=== PATIENT | male | born 1970 | race Caucasian/White ===

== ENCOUNTER 2024-02-16 08:34 | Outpatient (REF) | payer OTHER, SELFPAY ==
--- NOTE | ~2024-02-16 | XR_ITS ---
EXAMINATION: XR BILATERAL FEET XR CERVICAL SPINE XR BILATERAL HANDS XR SACROILIAC JOINTS XR THORACIC SPINE XR LUMBAR SPINE CLINICAL INFORMATION: Arthropathic psoriasis. COMPARISON: None available. TECHNIQUE: 7 views of the cervical spine, 3 views of the thoracic spine, 6 views of the lumbar spine. 4 views of each hand, 3 views of each foot. 3 views of the bilateral sacroiliac joints. FINDINGS: Bilateral Sacroiliac Joints: Moderate degenerative changes in the bilateral sacroiliac joints. Limited views of the bilateral hips demonstrate advanced degenerative changes with joint space narrowing and large superolateral acetabular osteophytes compatible with given history of psoriatic arthritis. Cervical Spine: Limited visualization of C5, and poor visualization of C6 and C7 due to overlying soft tissues. Multilevel cervical spondylosis with advanced degenerative changes and loss of disc space height at C4-C5 and C5-C6. Loss of disc space height at C6-C7 is difficult to confirm due to poor visualization. Bilateral multilevel facet hypertrophy with neural foraminal encroachment. Thoracic Spine: Slight rightward curvature of the thoracic spine with hypertrophic spurring along the anterior aspects of the xct-vx-gfuph thoracic spine. Lumbar Spine: Mild rightward curvature of the lumbar spine. Advanced facet arthritis in the hbe-mq-nxxct lumbar spine characteristic of psoriatic arthritis. Moderate multilevel lumbar spondylosis with multilevel loss of disc space height, particularly notable at L4-L5 and L5-S1. Right Hand: Moderate degenerative changes in the first carpometacarpal joint with joint space narrowing and hypertrophic change. Advanced degenerative changes with hypertrophic change in the first and second metacarpophalangeal joints. Hypertrophic change along the volar aspect of the bilateral second and third proximal phalanges. Left Hand: Moderate degenerative changes in the first carpometacarpal joint with joint space narrowing and hypertrophic change. Left ulnar-minus variance. Corticated ossicle distal to the left ulnar styloid, possibly related to prior avulsion. Small erosion at the volar base of the left fifth distal phalanx. Advanced degenerative changes and hypertrophic change in the first and second metacarpophalangeal joints. Hypertrophic change along the volar aspect of the bilateral second and third proximal phalanges. Right Foot: Tiny plantar calcaneal spur. Hypertrophic change along the dorsal aspect of the calcaneus. Tvqn-rv-ondbrzfe degenerative changes with hypertrophic change in the first metatarsophalangeal joints. Left Foot: Moderate degenerative changes in the first metatarsophalangeal joint with hypertrophic change and possible ulceration along the lateral aspect of the base of the first proximal phalanx. Small posterior calcaneal spur. Small corticated ossicle along the dorsal aspect of the navicular. Degenerative changes with hypertrophic change at the tarsometatarsal joints. XR/XR cervical spine 4V IMPRESSION: 1. Moderate degenerative changes in the bilateral sacroiliac joints. 2. Advanced degenerative changes in the bilateral hips compatible with given history of psoriatic arthritis. 3. Multilevel cervical spondylosis with advanced degenerative changes and loss of disc space height at C4-C5 and at C5-C6. Possible degenerative changes at C6-C7, are difficult to confirm due to poor visualization. 4. Moderate multilevel lumbar spondylosis with multilevel loss of disc space height particularly notable at L4-L5 and L5-S1. 5. Moderate degenerative changes in the bilateral hands most notable in the first and second metacarpophalangeal joints. 6. Moderate degenerative changes in the bilateral first metatarsophalangeal joints. 7. Advanced facet arthritis in the mid to lower lumbar spine characteristic of psoriatic arthritis.
--- NOTE | ~2024-02-16 | XR_ITS ---
EXAMINATION: XR BILATERAL FEET XR CERVICAL SPINE XR BILATERAL HANDS XR SACROILIAC JOINTS XR THORACIC SPINE XR LUMBAR SPINE CLINICAL INFORMATION: Arthropathic psoriasis. COMPARISON: None available. TECHNIQUE: 7 views of the cervical spine, 3 views of the thoracic spine, 6 views of the lumbar spine. 4 views of each hand, 3 views of each foot. 3 views of the bilateral sacroiliac joints. FINDINGS: Bilateral Sacroiliac Joints: Moderate degenerative changes in the bilateral sacroiliac joints. Limited views of the bilateral hips demonstrate advanced degenerative changes with joint space narrowing and large superolateral acetabular osteophytes compatible with given history of psoriatic arthritis. Cervical Spine: Limited visualization of C5, and poor visualization of C6 and C7 due to overlying soft tissues. Multilevel cervical spondylosis with advanced degenerative changes and loss of disc space height at C4-C5 and C5-C6. Loss of disc space height at C6-C7 is difficult to confirm due to poor visualization. Bilateral multilevel facet hypertrophy with neural foraminal encroachment. Thoracic Spine: Slight rightward curvature of the thoracic spine with hypertrophic spurring along the anterior aspects of the jgq-as-rkqbf thoracic spine. Lumbar Spine: Mild rightward curvature of the lumbar spine. Advanced facet arthritis in the gec-tu-xmbjk lumbar spine characteristic of psoriatic arthritis. Moderate multilevel lumbar spondylosis with multilevel loss of disc space height, particularly notable at L4-L5 and L5-S1. Right Hand: Moderate degenerative changes in the first carpometacarpal joint with joint space narrowing and hypertrophic change. Advanced degenerative changes with hypertrophic change in the first and second metacarpophalangeal joints. Hypertrophic change along the volar aspect of the bilateral second and third proximal phalanges. Left Hand: Moderate degenerative changes in the first carpometacarpal joint with joint space narrowing and hypertrophic change. Left ulnar-minus variance. Corticated ossicle distal to the left ulnar styloid, possibly related to prior avulsion. Small erosion at the volar base of the left fifth distal phalanx. Advanced degenerative changes and hypertrophic change in the first and second metacarpophalangeal joints. Hypertrophic change along the volar aspect of the bilateral second and third proximal phalanges. Right Foot: Tiny plantar calcaneal spur. Hypertrophic change along the dorsal aspect of the calcaneus. Vtji-fi-olvzkbnd degenerative changes with hypertrophic change in the first metatarsophalangeal joints. Left Foot: Moderate degenerative changes in the first metatarsophalangeal joint with hypertrophic change and possible ulceration along the lateral aspect of the base of the first proximal phalanx. Small posterior calcaneal spur. Small corticated ossicle along the dorsal aspect of the navicular. Degenerative changes with hypertrophic change at the tarsometatarsal joints. XR/XR hand wrist RT IMPRESSION: 1. Moderate degenerative changes in the bilateral sacroiliac joints. 2. Advanced degenerative changes in the bilateral hips compatible with given history of psoriatic arthritis. 3. Multilevel cervical spondylosis with advanced degenerative changes and loss of disc space height at C4-C5 and at C5-C6. Possible degenerative changes at C6-C7, are difficult to confirm due to poor visualization. 4. Moderate multilevel lumbar spondylosis with multilevel loss of disc space height particularly notable at L4-L5 and L5-S1. 5. Moderate degenerative changes in the bilateral hands most notable in the first and second metacarpophalangeal joints. 6. Moderate degenerative changes in the bilateral first metatarsophalangeal joints. 7. Advanced facet arthritis in the mid to lower lumbar spine characteristic of psoriatic arthritis.
--- NOTE | ~2024-02-16 | XR_ITS ---
EXAMINATION: XR BILATERAL FEET XR CERVICAL SPINE XR BILATERAL HANDS XR SACROILIAC JOINTS XR THORACIC SPINE XR LUMBAR SPINE CLINICAL INFORMATION: Arthropathic psoriasis. COMPARISON: None available. TECHNIQUE: 7 views of the cervical spine, 3 views of the thoracic spine, 6 views of the lumbar spine. 4 views of each hand, 3 views of each foot. 3 views of the bilateral sacroiliac joints. FINDINGS: Bilateral Sacroiliac Joints: Moderate degenerative changes in the bilateral sacroiliac joints. Limited views of the bilateral hips demonstrate advanced degenerative changes with joint space narrowing and large superolateral acetabular osteophytes compatible with given history of psoriatic arthritis. Cervical Spine: Limited visualization of C5, and poor visualization of C6 and C7 due to overlying soft tissues. Multilevel cervical spondylosis with advanced degenerative changes and loss of disc space height at C4-C5 and C5-C6. Loss of disc space height at C6-C7 is difficult to confirm due to poor visualization. Bilateral multilevel facet hypertrophy with neural foraminal encroachment. Thoracic Spine: Slight rightward curvature of the thoracic spine with hypertrophic spurring along the anterior aspects of the gyo-ar-dbsdw thoracic spine. Lumbar Spine: Mild rightward curvature of the lumbar spine. Advanced facet arthritis in the zjp-fp-dmbpj lumbar spine characteristic of psoriatic arthritis. Moderate multilevel lumbar spondylosis with multilevel loss of disc space height, particularly notable at L4-L5 and L5-S1. Right Hand: Moderate degenerative changes in the first carpometacarpal joint with joint space narrowing and hypertrophic change. Advanced degenerative changes with hypertrophic change in the first and second metacarpophalangeal joints. Hypertrophic change along the volar aspect of the bilateral second and third proximal phalanges. Left Hand: Moderate degenerative changes in the first carpometacarpal joint with joint space narrowing and hypertrophic change. Left ulnar-minus variance. Corticated ossicle distal to the left ulnar styloid, possibly related to prior avulsion. Small erosion at the volar base of the left fifth distal phalanx. Advanced degenerative changes and hypertrophic change in the first and second metacarpophalangeal joints. Hypertrophic change along the volar aspect of the bilateral second and third proximal phalanges. Right Foot: Tiny plantar calcaneal spur. Hypertrophic change along the dorsal aspect of the calcaneus. Wbcz-ve-iquzxjor degenerative changes with hypertrophic change in the first metatarsophalangeal joints. Left Foot: Moderate degenerative changes in the first metatarsophalangeal joint with hypertrophic change and possible ulceration along the lateral aspect of the base of the first proximal phalanx. Small posterior calcaneal spur. Small corticated ossicle along the dorsal aspect of the navicular. Degenerative changes with hypertrophic change at the tarsometatarsal joints. XR/XR foot RT min 3V IMPRESSION: 1. Moderate degenerative changes in the bilateral sacroiliac joints. 2. Advanced degenerative changes in the bilateral hips compatible with given history of psoriatic arthritis. 3. Multilevel cervical spondylosis with advanced degenerative changes and loss of disc space height at C4-C5 and at C5-C6. Possible degenerative changes at C6-C7, are difficult to confirm due to poor visualization. 4. Moderate multilevel lumbar spondylosis with multilevel loss of disc space height particularly notable at L4-L5 and L5-S1. 5. Moderate degenerative changes in the bilateral hands most notable in the first and second metacarpophalangeal joints. 6. Moderate degenerative changes in the bilateral first metatarsophalangeal joints. 7. Advanced facet arthritis in the mid to lower lumbar spine characteristic of psoriatic arthritis.
--- NOTE | ~2024-02-16 | XR_ITS ---
EXAMINATION: XR BILATERAL FEET XR CERVICAL SPINE XR BILATERAL HANDS XR SACROILIAC JOINTS XR THORACIC SPINE XR LUMBAR SPINE CLINICAL INFORMATION: Arthropathic psoriasis. COMPARISON: None available. TECHNIQUE: 7 views of the cervical spine, 3 views of the thoracic spine, 6 views of the lumbar spine. 4 views of each hand, 3 views of each foot. 3 views of the bilateral sacroiliac joints. FINDINGS: Bilateral Sacroiliac Joints: Moderate degenerative changes in the bilateral sacroiliac joints. Limited views of the bilateral hips demonstrate advanced degenerative changes with joint space narrowing and large superolateral acetabular osteophytes compatible with given history of psoriatic arthritis. Cervical Spine: Limited visualization of C5, and poor visualization of C6 and C7 due to overlying soft tissues. Multilevel cervical spondylosis with advanced degenerative changes and loss of disc space height at C4-C5 and C5-C6. Loss of disc space height at C6-C7 is difficult to confirm due to poor visualization. Bilateral multilevel facet hypertrophy with neural foraminal encroachment. Thoracic Spine: Slight rightward curvature of the thoracic spine with hypertrophic spurring along the anterior aspects of the bbb-mp-ehlmy thoracic spine. Lumbar Spine: Mild rightward curvature of the lumbar spine. Advanced facet arthritis in the def-kj-ehplo lumbar spine characteristic of psoriatic arthritis. Moderate multilevel lumbar spondylosis with multilevel loss of disc space height, particularly notable at L4-L5 and L5-S1. Right Hand: Moderate degenerative changes in the first carpometacarpal joint with joint space narrowing and hypertrophic change. Advanced degenerative changes with hypertrophic change in the first and second metacarpophalangeal joints. Hypertrophic change along the volar aspect of the bilateral second and third proximal phalanges. Left Hand: Moderate degenerative changes in the first carpometacarpal joint with joint space narrowing and hypertrophic change. Left ulnar-minus variance. Corticated ossicle distal to the left ulnar styloid, possibly related to prior avulsion. Small erosion at the volar base of the left fifth distal phalanx. Advanced degenerative changes and hypertrophic change in the first and second metacarpophalangeal joints. Hypertrophic change along the volar aspect of the bilateral second and third proximal phalanges. Right Foot: Tiny plantar calcaneal spur. Hypertrophic change along the dorsal aspect of the calcaneus. Livu-bs-jeumjmbs degenerative changes with hypertrophic change in the first metatarsophalangeal joints. Left Foot: Moderate degenerative changes in the first metatarsophalangeal joint with hypertrophic change and possible ulceration along the lateral aspect of the base of the first proximal phalanx. Small posterior calcaneal spur. Small corticated ossicle along the dorsal aspect of the navicular. Degenerative changes with hypertrophic change at the tarsometatarsal joints. XR/XR foot LT min 3V IMPRESSION: 1. Moderate degenerative changes in the bilateral sacroiliac joints. 2. Advanced degenerative changes in the bilateral hips compatible with given history of psoriatic arthritis. 3. Multilevel cervical spondylosis with advanced degenerative changes and loss of disc space height at C4-C5 and at C5-C6. Possible degenerative changes at C6-C7, are difficult to confirm due to poor visualization. 4. Moderate multilevel lumbar spondylosis with multilevel loss of disc space height particularly notable at L4-L5 and L5-S1. 5. Moderate degenerative changes in the bilateral hands most notable in the first and second metacarpophalangeal joints. 6. Moderate degenerative changes in the bilateral first metatarsophalangeal joints. 7. Advanced facet arthritis in the mid to lower lumbar spine characteristic of psoriatic arthritis.
--- NOTE | ~2024-02-16 | XR_ITS ---
EXAMINATION: XR BILATERAL FEET XR CERVICAL SPINE XR BILATERAL HANDS XR SACROILIAC JOINTS XR THORACIC SPINE XR LUMBAR SPINE CLINICAL INFORMATION: Arthropathic psoriasis. COMPARISON: None available. TECHNIQUE: 7 views of the cervical spine, 3 views of the thoracic spine, 6 views of the lumbar spine. 4 views of each hand, 3 views of each foot. 3 views of the bilateral sacroiliac joints. FINDINGS: Bilateral Sacroiliac Joints: Moderate degenerative changes in the bilateral sacroiliac joints. Limited views of the bilateral hips demonstrate advanced degenerative changes with joint space narrowing and large superolateral acetabular osteophytes compatible with given history of psoriatic arthritis. Cervical Spine: Limited visualization of C5, and poor visualization of C6 and C7 due to overlying soft tissues. Multilevel cervical spondylosis with advanced degenerative changes and loss of disc space height at C4-C5 and C5-C6. Loss of disc space height at C6-C7 is difficult to confirm due to poor visualization. Bilateral multilevel facet hypertrophy with neural foraminal encroachment. Thoracic Spine: Slight rightward curvature of the thoracic spine with hypertrophic spurring along the anterior aspects of the clr-ll-ozbad thoracic spine. Lumbar Spine: Mild rightward curvature of the lumbar spine. Advanced facet arthritis in the qnf-fb-[id number] lumbar spine characteristic of psoriatic arthritis. Moderate multilevel lumbar spondylosis with multilevel loss of disc space height, particularly notable at L4-L5 and L5-S1. Right Hand: Moderate degenerative changes in the first carpometacarpal joint with joint space narrowing and hypertrophic change. Advanced degenerative changes with hypertrophic change in the first and second metacarpophalangeal joints. Hypertrophic change along the volar aspect of the bilateral second and third proximal phalanges. Left Hand: Moderate degenerative changes in the first carpometacarpal joint with joint space narrowing and hypertrophic change. Left ulnar-minus variance. Corticated ossicle distal to the left ulnar styloid, possibly related to prior avulsion. Small erosion at the volar base of the left fifth distal phalanx. Advanced degenerative changes and hypertrophic change in the first and second metacarpophalangeal joints. Hypertrophic change along the volar aspect of the bilateral second and third proximal phalanges. Right Foot: Tiny plantar calcaneal spur. Hypertrophic change along the dorsal aspect of the calcaneus. Ldxi-[id number] degenerative changes with hypertrophic change in the first metatarsophalangeal joints. Left Foot: Moderate degenerative changes in the first metatarsophalangeal joint with hypertrophic change and possible ulceration along the lateral aspect of the base of the first proximal phalanx. Small posterior calcaneal spur. Small corticated ossicle along the dorsal aspect of the navicular. Degenerative changes with hypertrophic change at the tarsometatarsal joints. XR/XR hand wrist LT IMPRESSION: 1. Moderate degenerative changes in the bilateral sacroiliac joints. 2. Advanced degenerative changes in the bilateral hips compatible with given history of psoriatic arthritis. 3. Multilevel cervical spondylosis with advanced degenerative changes and loss of disc space height at C4-C5 and at C5-C6. Possible degenerative changes at C6-C7, are difficult to confirm due to poor visualization. 4. Moderate multilevel lumbar spondylosis with multilevel loss of disc space height particularly notable at L4-L5 and L5-S1. 5. Moderate degenerative changes in the bilateral hands most notable in the first and second metacarpophalangeal joints. 6. Moderate degenerative changes in the bilateral first metatarsophalangeal joints. 7. Advanced facet arthritis in the mid to lower lumbar spine characteristic of psoriatic arthritis.
--- NOTE | ~2024-02-16 | XR_ITS ---
EXAMINATION: XR BILATERAL FEET XR CERVICAL SPINE XR BILATERAL HANDS XR SACROILIAC JOINTS XR THORACIC SPINE XR LUMBAR SPINE CLINICAL INFORMATION: Arthropathic psoriasis. COMPARISON: None available. TECHNIQUE: 7 views of the cervical spine, 3 views of the thoracic spine, 6 views of the lumbar spine. 4 views of each hand, 3 views of each foot. 3 views of the bilateral sacroiliac joints. FINDINGS: Bilateral Sacroiliac Joints: Moderate degenerative changes in the bilateral sacroiliac joints. Limited views of the bilateral hips demonstrate advanced degenerative changes with joint space narrowing and large superolateral acetabular osteophytes compatible with given history of psoriatic arthritis. Cervical Spine: Limited visualization of C5, and poor visualization of C6 and C7 due to overlying soft tissues. Multilevel cervical spondylosis with advanced degenerative changes and loss of disc space height at C4-C5 and C5-C6. Loss of disc space height at C6-C7 is difficult to confirm due to poor visualization. Bilateral multilevel facet hypertrophy with neural foraminal encroachment. Thoracic Spine: Slight rightward curvature of the thoracic spine with hypertrophic spurring along the anterior aspects of the ssz-qk-dxjlj thoracic spine. Lumbar Spine: Mild rightward curvature of the lumbar spine. Advanced facet arthritis in the kcr-ff-qforg lumbar spine characteristic of psoriatic arthritis. Moderate multilevel lumbar spondylosis with multilevel loss of disc space height, particularly notable at L4-L5 and L5-S1. Right Hand: Moderate degenerative changes in the first carpometacarpal joint with joint space narrowing and hypertrophic change. Advanced degenerative changes with hypertrophic change in the first and second metacarpophalangeal joints. Hypertrophic change along the volar aspect of the bilateral second and third proximal phalanges. Left Hand: Moderate degenerative changes in the first carpometacarpal joint with joint space narrowing and hypertrophic change. Left ulnar-minus variance. Corticated ossicle distal to the left ulnar styloid, possibly related to prior avulsion. Small erosion at the volar base of the left fifth distal phalanx. Advanced degenerative changes and hypertrophic change in the first and second metacarpophalangeal joints. Hypertrophic change along the volar aspect of the bilateral second and third proximal phalanges. Right Foot: Tiny plantar calcaneal spur. Hypertrophic change along the dorsal aspect of the calcaneus. Cram-oe-buimqbkn degenerative changes with hypertrophic change in the first metatarsophalangeal joints. Left Foot: Moderate degenerative changes in the first metatarsophalangeal joint with hypertrophic change and possible ulceration along the lateral aspect of the base of the first proximal phalanx. Small posterior calcaneal spur. Small corticated ossicle along the dorsal aspect of the navicular. Degenerative changes with hypertrophic change at the tarsometatarsal joints. XR/XR sacroiliac joint min 3V IMPRESSION: 1. Moderate degenerative changes in the bilateral sacroiliac joints. 2. Advanced degenerative changes in the bilateral hips compatible with given history of psoriatic arthritis. 3. Multilevel cervical spondylosis with advanced degenerative changes and loss of disc space height at C4-C5 and at C5-C6. Possible degenerative changes at C6-C7, are difficult to confirm due to poor visualization. 4. Moderate multilevel lumbar spondylosis with multilevel loss of disc space height particularly notable at L4-L5 and L5-S1. 5. Moderate degenerative changes in the bilateral hands most notable in the first and second metacarpophalangeal joints. 6. Moderate degenerative changes in the bilateral first metatarsophalangeal joints. 7. Advanced facet arthritis in the mid to lower lumbar spine characteristic of psoriatic arthritis.
--- NOTE | ~2024-02-16 | XR_ITS ---
EXAMINATION: XR BILATERAL FEET XR CERVICAL SPINE XR BILATERAL HANDS XR SACROILIAC JOINTS XR THORACIC SPINE XR LUMBAR SPINE CLINICAL INFORMATION: Arthropathic psoriasis. COMPARISON: None available. TECHNIQUE: 7 views of the cervical spine, 3 views of the thoracic spine, 6 views of the lumbar spine. 4 views of each hand, 3 views of each foot. 3 views of the bilateral sacroiliac joints. FINDINGS: Bilateral Sacroiliac Joints: Moderate degenerative changes in the bilateral sacroiliac joints. Limited views of the bilateral hips demonstrate advanced degenerative changes with joint space narrowing and large superolateral acetabular osteophytes compatible with given history of psoriatic arthritis. Cervical Spine: Limited visualization of C5, and poor visualization of C6 and C7 due to overlying soft tissues. Multilevel cervical spondylosis with advanced degenerative changes and loss of disc space height at C4-C5 and C5-C6. Loss of disc space height at C6-C7 is difficult to confirm due to poor visualization. Bilateral multilevel facet hypertrophy with neural foraminal encroachment. Thoracic Spine: Slight rightward curvature of the thoracic spine with hypertrophic spurring along the anterior aspects of the shw-ec-ppsck thoracic spine. Lumbar Spine: Mild rightward curvature of the lumbar spine. Advanced facet arthritis in the vjb-he-hfekm lumbar spine characteristic of psoriatic arthritis. Moderate multilevel lumbar spondylosis with multilevel loss of disc space height, particularly notable at L4-L5 and L5-S1. Right Hand: Moderate degenerative changes in the first carpometacarpal joint with joint space narrowing and hypertrophic change. Advanced degenerative changes with hypertrophic change in the first and second metacarpophalangeal joints. Hypertrophic change along the volar aspect of the bilateral second and third proximal phalanges. Left Hand: Moderate degenerative changes in the first carpometacarpal joint with joint space narrowing and hypertrophic change. Left ulnar-minus variance. Corticated ossicle distal to the left ulnar styloid, possibly related to prior avulsion. Small erosion at the volar base of the left fifth distal phalanx. Advanced degenerative changes and hypertrophic change in the first and second metacarpophalangeal joints. Hypertrophic change along the volar aspect of the bilateral second and third proximal phalanges. Right Foot: Tiny plantar calcaneal spur. Hypertrophic change along the dorsal aspect of the calcaneus. Rbtj-cc-ustxwtgj degenerative changes with hypertrophic change in the first metatarsophalangeal joints. Left Foot: Moderate degenerative changes in the first metatarsophalangeal joint with hypertrophic change and possible ulceration along the lateral aspect of the base of the first proximal phalanx. Small posterior calcaneal spur. Small corticated ossicle along the dorsal aspect of the navicular. Degenerative changes with hypertrophic change at the tarsometatarsal joints. XR/XR lumbar spine 4V min IMPRESSION: 1. Moderate degenerative changes in the bilateral sacroiliac joints. 2. Advanced degenerative changes in the bilateral hips compatible with given history of psoriatic arthritis. 3. Multilevel cervical spondylosis with advanced degenerative changes and loss of disc space height at C4-C5 and at C5-C6. Possible degenerative changes at C6-C7, are difficult to confirm due to poor visualization. 4. Moderate multilevel lumbar spondylosis with multilevel loss of disc space height particularly notable at L4-L5 and L5-S1. 5. Moderate degenerative changes in the bilateral hands most notable in the first and second metacarpophalangeal joints. 6. Moderate degenerative changes in the bilateral first metatarsophalangeal joints. 7. Advanced facet arthritis in the mid to lower lumbar spine characteristic of psoriatic arthritis.
--- NOTE | ~2024-02-16 | XR_ITS ---
EXAMINATION: XR BILATERAL FEET XR CERVICAL SPINE XR BILATERAL HANDS XR SACROILIAC JOINTS XR THORACIC SPINE XR LUMBAR SPINE CLINICAL INFORMATION: Arthropathic psoriasis. COMPARISON: None available. TECHNIQUE: 7 views of the cervical spine, 3 views of the thoracic spine, 6 views of the lumbar spine. 4 views of each hand, 3 views of each foot. 3 views of the bilateral sacroiliac joints. FINDINGS: Bilateral Sacroiliac Joints: Moderate degenerative changes in the bilateral sacroiliac joints. Limited views of the bilateral hips demonstrate advanced degenerative changes with joint space narrowing and large superolateral acetabular osteophytes compatible with given history of psoriatic arthritis. Cervical Spine: Limited visualization of C5, and poor visualization of C6 and C7 due to overlying soft tissues. Multilevel cervical spondylosis with advanced degenerative changes and loss of disc space height at C4-C5 and C5-C6. Loss of disc space height at C6-C7 is difficult to confirm due to poor visualization. Bilateral multilevel facet hypertrophy with neural foraminal encroachment. Thoracic Spine: Slight rightward curvature of the thoracic spine with hypertrophic spurring along the anterior aspects of the ypo-ty-iwzbl thoracic spine. Lumbar Spine: Mild rightward curvature of the lumbar spine. Advanced facet arthritis in the ikm-sd-[id number] lumbar spine characteristic of psoriatic arthritis. Moderate multilevel lumbar spondylosis with multilevel loss of disc space height, particularly notable at L4-L5 and L5-S1. Right Hand: Moderate degenerative changes in the first carpometacarpal joint with joint space narrowing and hypertrophic change. Advanced degenerative changes with hypertrophic change in the first and second metacarpophalangeal joints. Hypertrophic change along the volar aspect of the bilateral second and third proximal phalanges. Left Hand: Moderate degenerative changes in the first carpometacarpal joint with joint space narrowing and hypertrophic change. Left ulnar-minus variance. Corticated ossicle distal to the left ulnar styloid, possibly related to prior avulsion. Small erosion at the volar base of the left fifth distal phalanx. Advanced degenerative changes and hypertrophic change in the first and second metacarpophalangeal joints. Hypertrophic change along the volar aspect of the bilateral second and third proximal phalanges. Right Foot: Tiny plantar calcaneal spur. Hypertrophic change along the dorsal aspect of the calcaneus. Lstb-vj-[id number] degenerative changes with hypertrophic change in the first metatarsophalangeal joints. Left Foot: Moderate degenerative changes in the first metatarsophalangeal joint with hypertrophic change and possible ulceration along the lateral aspect of the base of the first proximal phalanx. Small posterior calcaneal spur. Small corticated ossicle along the dorsal aspect of the navicular. Degenerative changes with hypertrophic change at the tarsometatarsal joints. XR/XR thoracic spine 3V IMPRESSION: 1. Moderate degenerative changes in the bilateral sacroiliac joints. 2. Advanced degenerative changes in the bilateral hips compatible with given history of psoriatic arthritis. 3. Multilevel cervical spondylosis with advanced degenerative changes and loss of disc space height at C4-C5 and at C5-C6. Possible degenerative changes at C6-C7, are difficult to confirm due to poor visualization. 4. Moderate multilevel lumbar spondylosis with multilevel loss of disc space height particularly notable at L4-L5 and L5-S1. 5. Moderate degenerative changes in the bilateral hands most notable in the first and second metacarpophalangeal joints. 6. Moderate degenerative changes in the bilateral first metatarsophalangeal joints. 7. Advanced facet arthritis in the mid to lower lumbar spine characteristic of psoriatic arthritis.
[2024-02-16 09:56] LABS: Basophils Absolute Auto 0.1 X10*3/uL (0.0-0.2); Basophils Percent Auto 0.7 % (0-2); Eosinophils Absolute Auto 0.2 X10*3/uL (0.0-0.4); Eosinophils Percent Auto 1.9 % (0-4); Hematocrit 44.2 % (42.0-52.0); Hemoglobin 14.7 g/dl (14.0-18.0); Imm Gran Abs Auto 0.03 X10*3/uL (0.00-0.03); Imm Gran Pct Auto 0.4 % (0.0-0.4); Lymphocytes Absolute Auto 2.7 X10*3/uL (1.2-4.9); Lymphocytes Percent Auto 32.2 % (20-40); MANUAL DIFF FLAG NO; Mean Corpuscular HGB Conc 33.3 g/dl (31.0-36.0); Mean Corpuscular Volume 84.2 fL (80.0-98.0); Mean Platelet Volume 10.5 fL (9.4-12.4); Monocytes Absolute Auto 0.6 X10*3/uL (0.1-1.2); Monocytes Percent Auto 6.8 % (2-11); Neutrophils Absolute Auto 4.8 x10*3/uL (2.0-8.3); Platelet Count 284 X10*3/uL (160-400); Red Blood Count 5.25 X10*6/uL (4.60-5.80); Red Cell Distribution Width 13.4 % (11.0-16.0); White Blood Count 8.4 X10*3/uL (4.8-10.8)
[2024-02-16 10:09] LABS: Rheumatoid Factor 13.9 IU/mL (<15.0)
[2024-02-16 10:10] LABS: Alanine Aminotransferase 36 U/L (0-40); Albumin Level 4.4 g/dL (3.5-5.0); Alkaline Phosphatase 43 U/L (39-117); Anion Gap 14 (12-20); Aspartate Amino Transferase 20 U/L (5-37); Bilirubin Total 0.4 mg/dL (0.0-1.0); Blood Urea Nitrogen 28 mg/dL (9-16); C Reactive Protein 0.18 mg/dL (< or = 0.50); Calcium 10.2 mg/dL (8.4-10.2); Carbon Dioxide 25 mmol/L (22-29); Chloride 106 mmol/L (96-108); Estimated Glomerular Filt Rate 46; Glucose Random 140 mg/dL (60-115); Potassium 4.2 mmol/L (3.3-5.1); Sodium 141 mmol/L (135-145)
[2024-02-16 10:36] LABS: HBc Num1 0.09 S/CO (0.00-0.79); HBsAGNum1 0.32 S/CO (0.00-0.99); Hepatitis B Core Antibody Nonreactive (Nonreactive); Hepatitis B Surface Antigen Negative (Negative); ~HepC Num1 0.09 S/CO (0.00-0.79); ~Hepatitis A Antibody IgM Nonreactive (Nonreactive); ~Hepatitis B Surface Antibody NONREACTIVE (Nonreactive); ~Hepatitis C Antibody Nonreactive (Nonreactive)
[2024-02-16 10:41] LABS: Erythrocyte Sedimentation Rate 4 MM/HR (0-15)
[2024-02-19 07:53] LABS: HLA B27 Negative (Negative)
[2024-02-19 08:53] LABS: Cyclic Citrullinated Peptide <16 UNITS
[2024-02-23 13:04] LABS: Prot Elec - Albumin 4.4 g/dL (3.8-4.8); Prot Elec - Alpha1 0.3 g/dL (0.2-0.3); Prot Elec - Alpha2 0.7 g/dL (0.5-0.9); Prot Elec - Beta 1 0.6 g/dL (0.4-0.6); Prot Elec - Beta 2 0.3 g/dL (0.2-0.5); Prot Elec - Gamma 1.2 g/dL (0.8-1.7); Prot Elec - Total Protein 7.4 g/dL (6.1-8.1)
[2024-02-24 22:49] LABS: IgA 267 mg/dL (47-310); IgG 1326 mg/dL (600-1640); IgM 120 mg/dL (50-300)
== END 2024-02-16 08:35 | disposition home or self-care (01) ==
LOC: HO.LAB 08:34
PROVIDERS: PCP Pediatrics; Visit Provider Student in an Organized Health Care Education/Training Program
DX: Z11.59 Encounter for screening for other viral diseases (principal); M45.9 Ankylosing spondylitis of unspecified sites in spine; L40.50 Arthropathic psoriasis, unspecified; Z72.89 Other problems related to lifestyle; M54.2 Cervicalgia; M54.6 Pain in thoracic spine; M79.642 Pain in left hand; M79.641 Pain in right hand; M79.672 Pain in left foot; M79.671 Pain in right foot; M25.532 Pain in left wrist; M25.531 Pain in right wrist
CPT/HCPCS: 36415; 72050; 72072; 72110; 72202; 73110; 73130; 73630; 80053; 82784; 84165; 85025; 85652; 86140; 86200; 86334; 86431; 86481; 86704; 86706; 86709; 86803; 86812; 87340

== ENCOUNTER 2024-02-16 08:34 | Outpatient (AMB) | payer OTHER, SELFPAY ==
--- NOTE | 2024-02-16 08:39 | MHC.OFFVIS ---
Vital Signs 02/16/24 08:40 Height 6 ft 2 in Weight 275 lb 9.245 oz BMI 35.4 BP 124/68 Blood Pressure Location Rt brachial Position Sitting Pulse 96 Pulse Source Pulse Oximeter Pulse Oximetry (%) 97 Oxygen Delivery Method Room Air Intake Visit Reasons: PSA Intake Note: New pt present today for consult, referred by [facility]. Dr Franco in the past, been a while since last visit. Previously on stelara has been off for more than 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 Accompanied by: Self / Same As Patient Allergies No Known Allergies Allergy (Verified 02/16/24 08:43) Medication List - Last Reconciled 02/16/24 by Gilberto Capone MD atorvastatin 80 mg PO DAILY empagliflozin (Jardiance) 25 mg PO DAILY fenofibrate mg PO insulin glargine (Lantus Solostar U-100 Insulin) units subcut insulin lispro (Humalog KwikPen (U-100) Insulin) subcut latanoprost 0.005% 1 drp ophthalmic (eye) BEDTIME lisinopril 20 mg PO DAILY metformin ER 500 mg PO QAM metoclopramide HCl 10 mg PO QID metoprolol ta-hydrochlorothiaz 50-25 mg 1 tab PO DAILY morphine ER 30 mg PO TID oxycodone 20 mg PO QID PRN pen needle, diabetic (Unifine Pentips Plus) As directed promethazine mg PO semaglutide (Ozempic) mg subcut HPI Comments Details: This is a 53 year old male who presents for evaluation of psoriatic arthritis. States that he was diagnosed with psoriatic arthritis about 10 years ago when he had pain and swelling on his feet then it started to affect his hands. Patient does not recall his exact medication history but does not believe that he took methotrexate. States that he took Otezla and it was ineffective. He does not recall ever being on any TNF inhibitors. He was doing quite well on Stelara for approximately 5 years then his legal executive assistant moved about a year ago and has not been on Stelara since. States that since he ran out of Stelara about a year ago he has been having more progressive stiffness of his hands, feet as well as his entire spine. States that he gets spinal injection by Dr. Amaral last of which was about a year ago. States that his spine was doing much better when he was on Stelara and required less injections. States that he only remembers 1 patch of psoriasis in his life. [facility] Medical History Primary osteoarthritis involving multiple joints Hypertension Headache Psoriatic arthritis Diabetes Asthma Surgical History No history of previous surgery Family History Mother Hypertension Other Medical history unknown Social History Alcohol intake: current Alcohol intake frequency: does not drink Patient Tobacco Use Status: Never used Tobacco Current occupational status: employed Current occupation: [employer] Reports dizziness and Reports neck pain GI Reports nausea Musc Reports back pain, Reports myalgias, Reports deformity, Reports arthralgias, Reports joint swelling, Reports limited range of motion, Reports neck pain and Reports stiffness Neuro Reports dizziness Physical Exam Vital Signs: Last Vital Signs Pulse 96 02/16/24 08:40 BP 124/68 02/16/24 08:40 Pulse Ox 97 02/16/24 08:40 Oxygen Delivery Method Room Air 02/16/24 08:40 BMI result Body Mass Index 35.4 Const General: cooperative, healthy appearing, comfortable and no acute distress Nutritional Appearance: obese Orientation/consciousness: patient oriented x3 Limitations: no limitations HEENT Head: Yes normocephalic and Yes atraumatic Mouth: moist mucous membranes Resp Effort & Inspection: normal respiratory effort and able to speak in complete sentences Auscultation: clear to auscultation bilaterally Cardio Rate: regular rate Rhythm: regular rhythm Heart sounds: S1 normal heart sound present Neuro General: patient oriented x3 Extrem Other: Osteoarthritic changes of both hands Mild tenderness at the MCPs and PIP is bilaterally No nail pitting Jesse test 10-13 cm Significantly limited range of motion of neck Negative straight leg raise test bilaterally Left lower back/left buttock tenderness with ROBERT test on the right Left lower back/left buttock tenderness with straight leg raise test on the left No swelling or tenderness both feet and toes Assessment & Plan Assessment & Plan (1) Psoriatic arthritis: Comment: dx approx 2013 Otezla ineffective Stelara 90 mg approx 2018 effective Code(s): L40.50 - Arthropathic psoriasis, unspecified Category: Medical Plan: This is a 53-year-old male who presents for evaluation of psoriatic arthritis. Per patient condition was diagnosed around 2013. Patient states that Otezla was ineffective. Does not recall ever being on TNF inhibitors. States that his condition was very well controlled on Stelara 90 mg every 3 months until his legal executive assistant moved he ran out of his Stelara about a year ago. Has been having worsening generalized spine stiffness as well as pain and stiffness in his hands. Check labs to evaluate disease activity, check x-rays of involved joints. Will start prior authorization for Stelara 90 mg Labs before next visit in 3 months Orders: Orders Erythrocyte Sedimentation Rate Today L40.50 - Arthropathic psoriasis, unspecified T Spot TB Today Z11.7 - Encounter for testing for latent tuberculosis infection HLA B27 Today M45.9 - Ankylosing spondylitis of unspecified sites in spine Cyclic Citrullinated Peptide Today M25.50 - Pain in unspecified joint XR hand wrist RT Today L40.50 - Arthropathic psoriasis, unspecified Complete Blood Count Auto Diff 3 Months L40.50 - Arthropathic psoriasis, unspecified C Reactive Protein 3 Months L40.50 - Arthropathic psoriasis, unspecified Complete Blood Count Auto Diff Today L40.50 - Arthropathic psoriasis, unspecified Comprehensive Met. Panel Today L40.50 - Arthropathic psoriasis, unspecified C Reactive Protein Today L40.50 - Arthropathic psoriasis, unspecified Hepatitis A,B,C Profile Today Z11.59 - Encounter for screening for other viral diseases Immunofixation Pnl, Serum Today L40.50 - Arthropathic psoriasis, unspecified Protein Electrophoresis, Serum Today L40.50 - Arthropathic psoriasis, unspecified Rheumatoid Factor Today M25.50 - Pain in unspecified joint XR hand wrist LT Today L40.50 - Arthropathic psoriasis, unspecified XR lumbar spine 4V min Today L40.50 - Arthropathic psoriasis, unspecified XR sacroiliac joint min 3V Today L40.50 - Arthropathic psoriasis, unspecified XR thoracic spine 3V Today L40.50 - Arthropathic psoriasis, unspecified XR cervical spine 4V Today L40.50 - Arthropathic psoriasis, unspecified XR foot LT min 3V Today L40.50 - Arthropathic psoriasis, unspecified XR foot RT min 3V Today L40.50 - Arthropathic psoriasis, unspecified Comprehensive Met. Panel 3 Months L40.50 - Arthropathic psoriasis, unspecified Erythrocyte Sedimentation Rate 3 Months L40.50 - Arthropathic psoriasis, unspecified
[2024-02-16 08:40] VITALS: BP 124/68; PULSE 96; O2SAT 97; BMI 35.4
== END 2024-02-16 09:07 | disposition home or self-care (01) ==
PROVIDERS: PCP Pediatrics; Visit Provider Student in an Organized Health Care Education/Training Program
DX: L40.50 Arthropathic psoriasis, unspecified (principal)
CPT/HCPCS: 99204

== ENCOUNTER 2024-05-17 14:01 | Outpatient (REF) | payer OTHER, SELFPAY ==
[2024-05-17 14:21] LABS: MANUAL DIFF FLAG NO
[2024-05-17 14:39] LABS: Basophils Absolute Auto 0.1 X10*3/uL (0.0-0.2); Basophils Percent Auto 0.9 % (0-2); Eosinophils Absolute Auto 0.1 X10*3/uL (0.0-0.4); Eosinophils Percent Auto 1.3 % (0-4); Hematocrit 44.5 % (42.0-52.0); Hemoglobin 14.4 g/dl (14.0-18.0); Imm Gran Abs Auto 0.02 X10*3/uL (0.00-0.03); Imm Gran Pct Auto 0.3 % (0.0-0.4); Lymphocytes Absolute Auto 1.9 X10*3/uL (1.2-4.9); Lymphocytes Percent Auto 23.9 % (20-40); Mean Corpuscular HGB Conc 32.4 g/dl (31.0-36.0); Mean Corpuscular Hemoglobin 27.9 pg (27.0-33.0); Mean Corpuscular Volume 86.2 fL (80.0-98.0); Mean Platelet Volume 10.5 fL (9.4-12.4); Monocytes Absolute Auto 0.3 X10*3/uL (0.1-1.2); Monocytes Percent Auto 3.4 % (2-11); Neutrophils Absolute Auto 5.6 x10*3/uL (2.0-8.3); Neutrophils Percent Auto 70.2 % (45-73); Platelet Count 302 X10*3/uL (160-400); Red Blood Count 5.16 X10*6/uL (4.60-5.80); Red Cell Distribution Width 13.7 % (11.0-16.0); White Blood Count 7.9 X10*3/uL (4.8-10.8)
[2024-05-17 14:58] LABS: Alanine Aminotransferase 21 U/L (0-40); Albumin Level 4.5 g/dL (3.5-5.0); Alkaline Phosphatase 40 U/L (39-117); Anion Gap 16 (12-20); Aspartate Amino Transferase 14 U/L (5-37); Bilirubin Total 0.5 mg/dL (0.0-1.0); Blood Urea Nitrogen 31 mg/dL (9-16); C Reactive Protein 0.26 mg/dL (< or = 0.50); Calcium 10.7 mg/dL (8.4-10.2); Carbon Dioxide 28 mmol/L (22-29); Chloride 99 mmol/L (96-108); Estimated Glomerular Filt Rate 37; Glucose Random 329 mg/dL (60-115); Potassium 4.8 mmol/L (3.3-5.1); Sodium 138 mmol/L (135-145); Total Protein 7.9 g/dL (6.5-8.0)
[2024-05-17 15:16] LABS: Erythrocyte Sedimentation Rate 3 MM/HR (0-15)
[2024-05-20 02:29] LABS: TS Negative Control Passed; TS Panel A 1; TS Panel B 1; TS Positive Control Passed; TSpotTB Negative (Negative)
== END 2024-05-17 14:02 | disposition home or self-care (01) ==
LOC: HO.LAB 14:01
PROVIDERS: Visit Provider Student in an Organized Health Care Education/Training Program
DX: Z11.7 Encounter for testing for latent tuberculosis infection (principal); L40.50 Arthropathic psoriasis, unspecified
CPT/HCPCS: 36415; 80053; 85025; 85652; 86140; 86481

== ENCOUNTER 2024-05-19 09:19 | Outpatient (AMB) | payer OTHER, SELFPAY ==
--- NOTE | 2024-05-19 09:20 | MHC.OFFVIS ---
Vital Signs 05/19/24 09:24 Height 6 ft 2 in Weight 273 lb 9.498 oz BMI 35.1 BP 120/62 Blood Pressure Location Rt brachial Position Sitting Respiration 18 Pulse 84 Pulse Source Pulse Oximeter Pulse Oximetry (%) 96 Oxygen Delivery Method Room Air Intake Visit Reasons: PsA/cm Intake Note: Patient presents for PsA. Allergies No Known Allergies Allergy (Verified 05/19/24 09:23) Medication List - Last Reconciled 05/19/24 by Gilberto Capone MD atorvastatin 80 mg PO DAILY empagliflozin (Jardiance) 25 mg PO DAILY fenofibrate mg PO insulin glargine (Lantus Solostar U-100 Insulin) units subcut insulin lispro (Humalog KwikPen (U-100) Insulin) subcut latanoprost 0.005% 1 drp ophthalmic (eye) BEDTIME lisinopril 20 mg PO DAILY metformin ER 500 mg PO QAM metoclopramide HCl 10 mg PO QID metoprolol ta-hydrochlorothiaz 50-25 mg 1 tab PO DAILY morphine ER 30 mg PO TID oxycodone 20 mg PO QID PRN pen needle, diabetic (Unifine Pentips Plus) As directed promethazine mg PO semaglutide (Ozempic) mg subcut Stelara (ustekinumab) Initial and maintenance: SUBQ: 90 mg at 0 and 4 weeks, and then 90 mg every 12 weeks NS HPI Comments Details: 53-year-old male with psoriatic arthritis returns for follow-up. He has received 2 doses of Stelara so far. States that felt much better after the 2nd dose. Improved overall stiffness of his spine, hands. Denies any swollen joints. Denies any side effects or Stelara. Denies any recent infections. He follows up with pain management regularly and received a steroid injection in his neck a few weeks ago. Initial history: This is a 53 year old male who presents for evaluation of psoriatic arthritis. States that he was diagnosed with psoriatic arthritis about 10 years ago when he had pain and swelling on his feet then it started to affect his hands. Patient does not recall his exact medication history but does not believe that he took methotrexate. States that he took Otezla and it was ineffective. He does not recall ever being on any TNF inhibitors. He was doing quite well on Stelara for approximately 5 years then his certified health education specialist moved about a year ago and has not been on Stelara since. States that since he ran out of Stelara about a year ago he has been having more progressive stiffness of his hands, feet as well as his entire spine. States that he gets spinal injection by Dr. Amaral last of which was about a year ago. States that his spine was doing much better when he was on Stelara and required less injections. States that he only remembers 1 patch of psoriasis in his life. [facility] Medical History Primary osteoarthritis involving multiple joints Hypertension Headache Psoriatic arthritis Diabetes Asthma Surgical History No history of previous surgery Family History Mother Hypertension Other Medical history unknown Social History Alcohol intake: current Alcohol intake frequency: does not drink Patient Tobacco Use Status: Never used Tobacco Current occupational status: employed Current occupation: IT [employer] Reports neck pain GI Reports nausea Musc Reports back pain, Reports myalgias, Reports deformity, Reports arthralgias, Reports joint swelling, Reports limited range of motion, Reports neck pain and Reports stiffness Physical Exam Vital Signs: Last Vital Signs Pulse 84 05/19/24 09:24 Resp 18 05/19/24 09:24 BP 120/62 05/19/24 09:24 Pulse Ox 96 05/19/24 09:24 Oxygen Delivery Method Room Air 05/19/24 09:24 BMI result Body Mass Index 35.1 Const General: cooperative, healthy appearing, comfortable and no acute distress Nutritional Appearance: obese Orientation/consciousness: patient oriented x3 Limitations: no limitations HEENT Head: Yes normocephalic and Yes atraumatic Mouth: moist mucous membranes Resp Effort & Inspection: normal respiratory effort and able to speak in complete sentences Auscultation: clear to auscultation bilaterally Cardio Rate: regular rate Rhythm: regular rhythm Heart sounds: S1 normal heart sound present Neuro General: patient oriented x3 Extrem Other: Significant Osteoarthritic changes of both hands No tenderness at the MCPs, DIPs or PIP is bilaterally today No nail pitting Jesse test 10-13 cm Significantly limited range of motion of neck Negative straight leg raise test bilaterally No swelling or tenderness both feet and toes osteoarthritic changes of both feet Results Reviewed Results Reviewed: Ordering Physician: Gilberto Capone MD Date of Service: 02/16/24 Procedure(s): XR thoracic spine 3V Accession Number(s): [id number] cc: Gilberto Capone MD; MIRTA ELIZABETH MD~ EXAMINATION: XR BILATERAL FEET XR CERVICAL SPINE XR BILATERAL HANDS XR SACROILIAC JOINTS XR THORACIC SPINE XR LUMBAR SPINE CLINICAL INFORMATION: Arthropathic psoriasis. COMPARISON: None available. TECHNIQUE: 7 views of the cervical spine, 3 views of the thoracic spine, 6 views of the lumbar spine. 4 views of each hand, 3 views of each foot. 3 views of the bilateral sacroiliac joints. FINDINGS: Bilateral Sacroiliac Joints: Moderate degenerative changes in the bilateral sacroiliac joints. Limited views of the bilateral hips demonstrate advanced degenerative changes with joint space narrowing and large superolateral acetabular osteophytes compatible with given history of psoriatic arthritis. Cervical Spine: Limited visualization of C5, and poor visualization of C6 and C7 due to overlying soft tissues. Multilevel cervical spondylosis with advanced degenerative changes and loss of disc space height at C4-C5 and C5-C6. Loss of disc space height at C6-C7 is difficult to confirm due to poor visualization. Bilateral multilevel facet hypertrophy with neural foraminal encroachment. Thoracic Spine: Slight rightward curvature of the thoracic spine with hypertrophic spurring along the anterior aspects of the [id number] thoracic spine. Lumbar Spine: Mild rightward curvature of the lumbar spine. Advanced facet arthritis in the [id number] lumbar spine characteristic of psoriatic arthritis. Moderate multilevel lumbar spondylosis with multilevel loss of disc space height, particularly notable at L4-L5 and L5-S1. Right Hand: Moderate degenerative changes in the first carpometacarpal joint with joint space narrowing and hypertrophic change. Advanced degenerative changes with hypertrophic change in the first and second metacarpophalangeal joints. Hypertrophic change along the volar aspect of the bilateral second and third proximal phalanges. Left Hand: Moderate degenerative changes in the first carpometacarpal joint with joint space narrowing and hypertrophic change. Left ulnar-minus variance. Corticated ossicle distal to the left ulnar styloid, possibly related to prior avulsion. Small erosion at the volar base of the left fifth distal phalanx. Advanced degenerative changes and hypertrophic change in the first and second metacarpophalangeal joints. Hypertrophic change along the volar aspect of the bilateral second and third proximal phalanges. Right Foot: Tiny plantar calcaneal spur. Hypertrophic change along the dorsal aspect of the calcaneus. Ajro-wi-gcrqscau degenerative changes with hypertrophic change in the first metatarsophalangeal joints. Left Foot: Moderate degenerative changes in the first metatarsophalangeal joint with hypertrophic change and possible ulceration along the lateral aspect of the base of the first proximal phalanx. Small posterior calcaneal spur. Small corticated ossicle along the dorsal aspect of the navicular. Degenerative changes with hypertrophic change at the tarsometatarsal joints. XR/XR thoracic spine 3V IMPRESSION: 1. Moderate degenerative changes in the bilateral sacroiliac joints. 2. Advanced degenerative changes in the bilateral hips compatible with given history of psoriatic arthritis. 3. Multilevel cervical spondylosis with advanced degenerative changes and loss of disc space height at C4-C5 and at C5-C6. Possible degenerative changes at C6-C7, are difficult to confirm due to poor visualization. 4. Moderate multilevel lumbar spondylosis with multilevel loss of disc space height particularly notable at L4-L5 and L5-S1. 5. Moderate degenerative changes in the bilateral hands most notable in the first and second metacarpophalangeal joints. 6. Moderate degenerative changes in the bilateral first metatarsophalangeal joints. 7. Advanced facet arthritis in the mid to lower lumbar spine characteristic of psoriatic arthritis. Assessment & Plan Assessment & Plan (1) Psoriatic arthritis: Comment: dx approx 2013 Otezla ineffective Stelara 90 mg approx 2018 effective. lost to follow up 01/2023 Stelara restarted 01/2024 effective Code(s): L40.50 - Arthropathic psoriasis, unspecified Category: Medical Plan: This is a 53-year-old male with psoriatic arthritis who presents for follow-up. He started Stelara 90 mg every 3 months. Received a couple of doses so far. States that he feels much better overall especially since after the 2nd injection. Improved overall stiffness. Patient states that he never had psoriasis rashes Continue with Stelara 90 mg q 12 weeks Labs before next visit in 6 months (2) Generalized osteoarthritis: Code(s): M15.9 - Polyosteoarthritis, unspecified Category: Medical (3) High risk medication use: Code(s): Z79.899 - Other [facility] (current[facility] drug therapy Category: Medical Plan: Side effects of Stelara were discussed with the patient in detail including increased risk of infection, demyelinating disease, reactivation of latent TB, possible increased risk of solid and skin tumors. Patient fully aware. Advised patient to seek medical care [facility] if patient has an infection and advised patient to stop the medication until the infection is resolved. Plan I spent 24 minutes reviewing patient's chart, evaluating patient, ordering diagnostic workup, counseling patient and documenting in the chart Orders: Orders Comprehensive Met. Panel 6 Months L40.50 - Arthropathic psoriasis, unspecified C Reactive Protein 6 Months L40.50 - Arthropathic psoriasis, unspecified Complete Blood Count Auto Diff 6 Months L40.50 - Arthropathic psoriasis, unspecified Erythrocyte Sedimentation Rate 6 Months L40.50 - Arthropathic psoriasis, unspecified Coding Level of Care Code Est Pt Level 4 (86715) Diagnoses Psoriatic arthritis L40.50 Generalized osteoarthritis M15.9 High risk medication use Z79.899
[2024-05-19 09:24] VITALS: BP 120/62; PULSE 84; RESP 18; O2SAT 96; BMI 35.1
== END 2024-05-19 09:40 | disposition home or self-care (01) ==
PROVIDERS: PCP Pediatrics; Visit Provider Student in an Organized Health Care Education/Training Program
DX: L40.50 Arthropathic psoriasis, unspecified (principal); M15.9 Polyosteoarthritis, unspecified; Z79.899 Other long term (current) drug therapy
CPT/HCPCS: 99214

== ENCOUNTER → 2024-05-19 09:19 | Outpatient (BNVA) | payer OTHER, SELFPAY | PROVIDERS: PCP Pediatrics; Visit Provider Student in an Organized Health Care Education/Training Program ==

== ENCOUNTER 2024-11-10 08:34 | Outpatient (AMB) | payer OTHER, SELFPAY ==
--- NOTE | 2024-11-10 08:47 | MHC.OFFVIS ---
Vital Signs 11/10/24 08:50 Height 6 ft 2 in Weight 275 lb 2.19 oz BMI 35.3 BP 120/72 Blood Pressure Location Rt brachial Position Sitting Respiration 18 Pulse 87 Pulse Source Pulse Oximeter Pulse Oximetry (%) 98 Oxygen Delivery Method Room Air Intake Visit Reasons: PSA Intake Note: Patient presents for PsA. Allergies No Known Allergies Allergy (Verified 11/10/24 08:50) Medication List - Last Reconciled 11/10/24 by Gilberto Capone MD atorvastatin 80 mg PO DAILY empagliflozin (Jardiance) 25 mg PO DAILY fenofibrate mg PO insulin glargine (Lantus Solostar U-100 Insulin) units subcut insulin lispro (Humalog KwikPen (U-100) Insulin) subcut latanoprost 0.005% 1 drp ophthalmic (eye) BEDTIME lisinopril 20 mg PO DAILY metformin ER 500 mg PO QAM metoclopramide HCl 10 mg PO QID metoprolol ta-hydrochlorothiaz 50-25 mg 1 tab PO DAILY morphine ER 30 mg PO TID oxycodone 20 mg PO QID PRN pen needle, diabetic (Unifine Pentips Plus) As directed promethazine mg PO semaglutide (Ozempic) mg subcut Stelara (ustekinumab) 90 mg subcut Q12W NS HPI Comments Details: 54-year-old male with psoriatic arthritis returns for follow-up. He remains on Stelara injections. He states that he continues to have generalized stiffness in his hands, knees, back.. He has a pinched nerve in his neck with pain shooting down his right hand. He was evaluated by a spine surgeon yesterday and surgery was recommended. Per patient he has been postponing surgery for 15 years. Worried about healing. He states that he does not feel that the Stelara is as helpful as it did when he started it in the past Initial history: This is a 53 year old male who presents for evaluation of psoriatic arthritis. States that he was diagnosed with psoriatic arthritis about 10 years ago when he had pain and swelling on his feet then it started to affect his hands. Patient does not recall his exact medication history but does not believe that he took methotrexate. States that he took Otezla and it was ineffective. He does not recall ever being on any TNF inhibitors. He was doing quite well on Stelara for approximately 5 years then his technical manager chemical plant moved about a year ago and has not been on Stelara since. States that since he ran out of Stelara about a year ago he has been having more progressive stiffness of his hands, feet as well as his entire spine. States that he gets spinal injection by Dr. Amaral last of which was about a year ago. States that his spine was doing much better when he was on Stelara and required less injections. States that he only remembers 1 patch of psoriasis in his life. 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 Reports back pain, Reports myalgias, Reports deformity, Reports arthralgias, Reports limited range of motion, Reports neck pain and Reports stiffness Physical Exam Vital Signs: Last Vital Signs Pulse 87 11/10/24 08:50 Resp 18 11/10/24 08:50 BP 120/72 11/10/24 08:50 Pulse Ox 98 11/10/24 08:50 Oxygen Delivery Method Room Air 11/10/24 08:50 BMI result Body Mass Index 35.3 Const General: cooperative, healthy appearing, comfortable and no acute distress Nutritional Appearance: obese Orientation/consciousness: patient oriented x3 Limitations: no limitations HEENT Head: Yes normocephalic and Yes atraumatic Mouth: moist mucous membranes Resp Effort & Inspection: normal respiratory effort and able to speak in complete sentences Cardio Rate: regular rate Rhythm: regular rhythm Neuro General: patient oriented x3 Extrem Other: Significant Osteoarthritic changes of both hands No tenderness at the MCPs, DIPs or PIP is bilaterally today No nail pitting Jesse test 10-13 cm Significantly limited range of motion of neck Negative straight leg raise test bilaterally No swelling or tenderness both feet and toes osteoarthritic changes of both feet Assessment & Plan Assessment & Plan (1) Psoriatic arthritis: Comment: dx approx 2013 Otezla ineffective Stelara 90 mg approx 2018 effective. lost to follow up 01/2023 Stelara restarted 01/2024 effective Code(s): L40.50 - Arthropathic psoriasis, unspecified Category: Medical Plan: This is a 54-year-old male with psoriatic arthritis who presents for follow-up. On Stelara 90 mg injection every 12 weeks. Doing well overall, I do not see any signs suggestive of active disease, clinical picture rather consistent with generalized osteoarthritis Continue with Stelara 90 mg q 12 weeks Labs before next visit in 6 months (2) Generalized osteoarthritis: Code(s): M15.9 - Polyosteoarthritis, unspecified Category: Medical Plan: Discussed management of generalized osteoarthritis, consider turmeric about 2000 mg daily Can consider PT/OT for involved joints. Patient is not interested in a referral today (3) High risk medication use: Code(s): Z79.899 - Other shelter (current) drug therapy Category: Medical Plan: Side effects of Stelara were discussed with the patient in detail including increased risk of infection, demyelinating disease, reactivation of latent TB, possible increased risk of solid and skin tumors. Patient fully aware. Advised patient to seek medical care [facility] if patient has an infection and advised patient to stop the medication until the infection is resolved. Plan I spent 24 minutes reviewing patient's chart, evaluating patient, ordering diagnostic workup, counseling patient and documenting in the chart Orders: Orders Comprehensive Met. Panel 6 Months L40.50 - Arthropathic psoriasis, unspecified, Z79.899 - Other [employer] (current) drug therapy Hepatitis A,B,C Profile 6 Months Z11.59 - Encounter for screening for other viral diseases T Spot TB 6 Months Z11.7 - Encounter for testing for latent tuberculosis infection Complete Blood Count Auto Diff 6 Months L40.50 - Arthropathic psoriasis, unspecified, Z79.899 - Other [employer] (current) drug therapy C Reactive Protein 6 Months L40.50 - Arthropathic psoriasis, unspecified, Z79.899 - Other shelter (current) drug therapy Erythrocyte Sedimentation Rate 6 Months L40.50 - Arthropathic psoriasis, unspecified, Z79.899 - Other shelter (current) drug therapy Coding Level of Care Code Est Pt Level 4 (18397) Complex EM visit Add On G2211 Diagnoses Psoriatic arthritis L40.50 Generalized osteoarthritis M15.9 High risk medication use Z79.890
[2024-11-10 08:50] VITALS: BP 120/72; PULSE 87; RESP 18; O2SAT 98; BMI 35.3
== END 2024-11-10 09:23 | disposition home or self-care (01) ==
PROVIDERS: PCP Pediatrics; Visit Provider Student in an Organized Health Care Education/Training Program
DX: L40.50 Arthropathic psoriasis, unspecified (principal); M15.9 Polyosteoarthritis, unspecified; Z79.899 Other long term (current) drug therapy
CPT/HCPCS: 99214; G2211

== ENCOUNTER 2025-05-12 13:14 | Outpatient (AMB) | payer OTHER, SELFPAY ==
--- NOTE | 2025-05-12 13:26 | A.OFFVIS_ITS ---
Vital Signs 05/12/25 13:30 Height 6 ft 2 in Weight 279 lb 12.266 oz BMI 35.9 BP 124/72 Blood Pressure Location Lt brachial Position Sitting Pulse 84 Pulse Source Pulse Oximeter Pulse Oximetry (%) 98 Oxygen Delivery Method Room Air Intake Visit Reasons: PsA Intake Note: Patient presents for PsA follow up. Allergies No Known Allergies Allergy (Verified 05/12/25 13:29) Medication List - Last Reconciled 05/12/25 by Amanda Vega MD atorvastatin 80 mg PO DAILY empagliflozin (Jardiance) 25 mg PO DAILY fenofibrate mg PO insulin glargine (Lantus Solostar U-100 Insulin) units subcut insulin lispro (Humalog KwikPen (U-100) Insulin) subcut latanoprost 0.005% 1 drp ophthalmic (eye) BEDTIME lisinopril 20 mg PO DAILY metformin ER 500 mg PO QAM metoclopramide HCl 10 mg PO QID metoprolol ta-hydrochlorothiaz 50-25 mg 1 tab PO DAILY morphine ER 30 mg PO TID oxycodone 20 mg PO QID PRN pen needle, diabetic (Unifine Pentips Plus) As directed promethazine mg PO semaglutide (Ozempic) mg subcut ustekinumab-auub (Wezlana) 90 mg subcut Q12W HPI Comments Details: Patient is a 54-year-old male with hyperlipidemia, diabetes, hypertension, degenerative spin disease c/b cervical radiculopathy, polyarticular osteoarthritis and psoriatic arthritis here today for follow up Interval History: Patient last seen 11/10/[address] Capone - On Stelara - C/o of neck pain, knee pain and hand pain - exam consistent with degenerative joint disease - Concerned that stelara not effective but was reassured Today, - No further dactylitis to hands or feet - never had PsO - getting injections from pain management but last injection complicated by spinal headache - c/o knee pain with instability R>L Rheumatologic History: PsA dx approx 2013 Otezla ineffective Stelara 90 mg approx 2017 effective. lost to follow up 01/2023 Stelara restarted 01/2024 effective Initial history: This is a 53 year old male who presents for evaluation of psoriatic arthritis. States that he was diagnosed with psoriatic arthritis about 10 years ago when he had pain and swelling on his feet then it started to affect his hands. Patient does not recall his exact medication history but does not believe that he took methotrexate. States that he took Otezla and it was ineffective. He does not recall ever being on any TNF inhibitors. 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 States that since he ran out of Stelara about a year ago he has been having more progressive stiffness of his hands, feet as well as his entire spine. States that he gets spinal injection by Dr. Amaral last of which was about a year ago. States that his spine was doing much better when he was on Stelara and required less injections. States that he only remembers 1 patch of psoriasis in his life. Current Rheumatology Medication(s): Stelara 90mg every 12 weeks [facility] Medical History Primary osteoarthritis involving multiple joints Hypertension Headache Psoriatic arthritis Diabetes Asthma Surgical History No history of previous surgery Family History Mother Hypertension Other Medical history unknown Social History Alcohol intake: current Alcohol intake frequency: does not drink Patient Tobacco Use Status: Never used Tobacco Current occupational status: employed Current occupation: IT Review of Systems Const Details: Review of Systems Constitutional: Denies fever, chills, weight loss ENT: Denies vision changes, eye pain or eye redness, dental caries, dry mouth GI: Denies nausea, vomiting, diarrhea, abdominal pain, change in BM Pulm: Denies SOB, MILIAN, hemoptysis, wheezing Cards: Denies chest pain, palpitations Skin: Denies Raynaud's, rash, nail changes, photosensitivity, BUSINESS SERVICES ASSOCIATE: Denies headaches, weakness, paresthesias, recurrent falls MSK: as per HPI All other systems reviewed and are unremarkable except noted above Physical Exam Vital Signs: Last Vital Signs Pulse 84 05/12/25 13:30 BP 124/72 05/12/25 13:30 Pulse Ox 98 05/12/25 13:30 Oxygen Delivery Method Room Air 05/12/25 13:30 BMI result Body Mass Index 35.9 Vital signs reviewed Physical Examination CONSTITUITIONAL Patient alert and cooperative. Well appearing and in no apparent painful distress MSK Hands * Right Hand: Able to make a fist. No swelling or tenderness to palpation of these joints. * Left Hand: Able to make a fist. No swelling or tenderness to palpation of these joints. * Mild Herbedens nodes noted bilaterally Wrists * Right Wrist: Full ROM. 70 degrees of wrist flexion, 80 degrees of wrist extension. No swelling or TTP * Left Wrist: Full ROM. 70 degrees of wrist flexion, 80 degrees of wrist extension. No swelling or TTP Elbows * Right Elbow: Full ROM. No swelling or TTP. No TTP of the medial and lateral epicondyles * Left Elbow: Full ROM. No swelling or TTP. No TTP of the medial and lateral epicondyles Shoulders * Right shoulder: Full ROM. No swelling noted. TTP of the AC joint, subacromial bursa or posterior shoulder * Left shoulder: Full ROM. No swelling noted. TTP of the AC joint, subacromial bursa or posterior shoulder Knees * Right knee: Full ROM. No swelling noted. No TTP of the knee joint lie or pes anserine bursa * Left knee: Full ROM. No swelling noted. No TTP of the knee joint lie or pes anserine bursa. * Crepitations felt bilaterally Ankles * Right ankle: Good ankle dorsiflexion and plantar flexion. No swelling. No TTP of the ankle joint * Left ankle: Good ankle dorsiflexion and plantar flexion. No swelling. No TTP of the ankle joint Feet * Right foot: Negative squeeze test * Left foot: Negative squeeze test Tender points? * No tenderness to palpation of the bilateral trapezius, supraspinatus, anterior costochondral junctions, bilateral suboccipital muscle insertions SKIN No rashes Results Reviewed Results Reviewed: 02/14/25 [facility] WBC 7.6 Hb 14.3 Plt 303 BUN 29 Cr 1.82 eGFR 43 ALT 27 AST 65 ESR 9 CRP <0.29 Hepatitis panel Negative T spot Negative Assessment & Plan Assessment & Plan (1) Psoriatic arthritis: Comment: dx approx 2013 Otezla ineffective Stelara 90 mg approx 2017 effective. lost to follow up 01/2023 Stelara restarted 01/2024 effective Code(s): L40.50 - Arthropathic psoriasis, unspecified Category: Medical Plan: #PsA Patient is a 54 y.o. male with PsA without evidence of PsO here today for follow up No signs or sx of active PsA Insurance no longer covering [facility], will order [place] Plan - Ustekinumab - auub (Wezlara) 90mg every 12 weeks - RTC 6 months - Labs before visit: CBC, CMP, ESR, CRP (2) Generalized osteoarthritis: Code(s): M15.9 - Polyosteoarthritis, unspecified Category: Medical Plan: #Polyarticular OA and degenerative spine disease Discussed with the patient the difference between degenerative arthritis and psoriatic arthritis. Also discussed treatment options for his degenerative arthritis specifically his knees. We will send him to physical therapy for strengthening. Also discussed other options such as steroid and gel injections for his knee (3) High risk medication use: Code(s): Z79.899 - Other snf (current) drug therapy Category: Medical Plan: #computer terminal operator Use of Ustekinumab Risks and benefits of ustekinumab in the management of patient's rheumatologic disease discussed. Benefits include improved disease activity decreased occurrence of flares. Risks include hypersensitivity reactions, increased risk of infection increased risk of malignancy, reactivation of TB, posterior reversible encephalopathy syndrome including altered mental status, confusion, headaches, seizures, visual disturbances and imaging changes. Plan I spent 30 minutes reviewing the record and labs, taking a history, examining the patient, discussing the treatment plan, ordering diagnostic work up and documenting in the medical record Orders: Orders PT Evaluation and Treatment Today M15.9 - Polyosteoarthritis, unspecified Coding Level of Care Code Est Pt Level 4 (86937) Complex EM visit Add On G2211 Diagnoses Psoriatic arthritis L40.50 Generalized osteoarthritis M15.9 High risk medication use Z79.899
[2025-05-12 13:30] VITALS: BP 124/72; PULSE 84; O2SAT 98; BMI 35.9
--- OUTSIDE RECORDS SUMMARY | 2025-05-12 13:42 | XMS_ITS | Clinical Summary ---
Author Organization [facility] [address] [facility] lding Address [address] [place] [address] Phone Care Team Providers Care Wood Stock Blank Handler Name Role Phone Darryl Miller MD Primary Care Provider [phone] Allergies No known active allergies Medications blood-glucose meter,continuous (Dexcom G6 Technical Producer) misc USE DIRECTED DAILY 022 Active blood-glucose transmitter (Dexcom G6 Transmitter) device 1 Device by Does not apply route Every 3 Months. 024 Active Glucagon HCl, rDNA, (Glucagon Emergency Kit, human,) 1 mg injection Inject 1 Kit into the muscle once for 1 dose. 019 Active insulin lispro (HumaLOG KwikPen Insulin) 100 unit/mL injection pen INJECT SUBCUTANEOUSLY 10 UNITS 3 TIMES DAILY BEFORE MEALS ADJUST UP TO 30 UNITS 3 TIMES DAILY NEEDED DIRECTED Active latanoprost (XALATAN) 0.005 % ophthalmic solution APPLY 1 DROP INTO EACH EYE AT BEDTIME Active metoclopramide (REGLAN) 10 mg tablet TAKE ONE TABLET BY MOUTH FOUR TIMES A DAY Active ustekinumab (Stelara) 90 mg/mL syringe Inject into the skin. Every 3 months Active metFORMIN XR (GLUCOPHAGE-XR) 500 mg 24 hr tablet TAKE ONE TABLET BY MOUTH EVERY DAY WITH BREAKFAST 180 tablet 1 024 Active atorvastatin (LIPITOR) 80 mg tablet TAKE ONE TABLET BY MOUTH EVERY DAY 90 tablet 1 025 Active lisinopriL (PRINIVIL,ZESTRI L) 20 mg tablet TAKE ONE TABLET BY MOUTH EVERY DAY 90 tablet 1 025 Active Jardiance 25 mg tablet TAKE ONE TABLET BY MOUTH EVERY DAY 90 tablet 1 Active metoprolol-hydro CHLOROthiazide (LOPRESSOR HCT) 50-25 mg per tablet Take 1 tablet by mouth 1 (one) time each day. 90 tablet 1 Active fenofibrate (LOFIBRA) 160 mg tablet Take 1 tablet (160 mg total) by mouth 1 (one) time each day. 90 each 1 025 Active insulin glargine (Lantus Solostar U-100 Insulin) 100 unit/mL (3 mL) injection pen Inject 62 Units under the skin 1 (one) time each day in the morning. 60 mL Active morphine (MS CONTIN) 30 mg 12 hr tabletIndication s:Chronic pain syndrome Take 1 tablet (30 mg total) by mouth 3 (three) times a day for 28 days. Do not crush, chew, or split. Max Daily Amount: 90 mg 84 tablet 025 2024 Active oxyCODONE (ROXICODONE) 20 mg immediate release tabletIndication s:Chronic pain syndrome Take 1 tablet (20 mg total) by mouth 4 (four) times a day for 28 days. Max Daily Amount: 80 mg 112 tablet 025 2024 Active Unifine Pentips Plus 31 gauge x 5/16 needleIndication s:Diabetes mellitus type 2 with neurological manifestations ([facility] V24, [facility] V28),Type 2 diabetes mellitus with other diabetic kidney complication, with long-term current use of insulin ([facility] V24, [facility] V28),Diabetic gastroparesis ([facility] V24, [facility] V28) USE TO INJECT INSULIN UP TO 5 TIMES DAILY 450 each 1 Active blood-glucose sensor (Dexcom G6 Sensor) device APPLY 1 SENSOR AND CHANGE EVERY 10 DAYS 3 kit 11 Active promethazine (PHENERGAN) 25 mg tablet Take 1 tablet (25 mg total) by mouth every 6 (six) hours if needed for nausea or vomiting. for nausea 360 tablet 025 2024 Active blood-glucose sensor (DEXCOM G6 SENSOR MISC) APPLY 1 SENSOR AND CHANGE EVERY 10 DAYS 024 2024 Discontinued(R eorder) pen needle, diabetic 31 gauge x 5/16 needle INSULIN PEN NEEDLE (CAREONE UNIFINE PENTIPS PLUS) 31G X 8 MM MISC USE TO INJECT INSULIN UP TO 5 TIMES DAILY 024 2024 Discontinued promethazine (PHENERGAN) 25 mg tablet TAKE ONE TABLET BY MOUTH EVERY 6 HOURS NEEDED FOR NAUSEA 90 tablet 4 024 2024 Discontinued(R eorder) Lantus Solostar U-100 Insulin 100 unit/mL (3 mL) injection pen INJECT SUBCUTANEOUSLY 62 UNITS DAILY 60 mL 3 025 2024 Discontinued(R eorder) morphine (MS CONTIN) 30 mg 12 hr tabletIndication s:Chronic pain syndrome Take 1 tablet (30 mg total) by mouth 3 (three) times a day for 28 days. Do not crush, chew, or split. Max Daily Amount: 90 mg 84 tablet 025 2024 Discontinued(R eorder) oxyCODONE (ROXICODONE) 20 mg immediate release tabletIndication s:Chronic pain syndrome Take 1 tablet (20 mg total) by mouth 4 (four) times a day for 28 days. Max Daily Amount: 80 mg 112 tablet 025 2024 Discontinued(R eorder) Active Problems Problem Noted Date Diagnosed Date Type 2 diabetes mellitus wit h obesity ([place] V24, [place] V28) 10/05/2019 Obesity (BMI 30-39.9) 03/21/2016 Diabetes mellitus type 2 wit h neurological manifestations ([place] V24, [facility] V28) 02/02/2016 Overview (04/12/2025): Intol GLP-1 due to gastroparesis Type 2 diabetes mellitus wit h cataract ([facility] V24, [facility] V28) 02/02/2016 NS (nuclear sclerosis) 05/01/2011 Glaucoma suspect 03/13/2011 Overview (09/01/2024): Dr. Schultz, Dr. Ugalde CKD (chronic kidney disease) stage 3, GFR 30-59 ml/min ([place] V24, [facility] V28) 08/22/2009 Overview (09/01/2024): No Showed Dr. Carballo Hypercholesteremia 02/06/2009 Overview (09/01/2024): IMO update Diabetic gastroparesis ([place] V24, [facility] V28 ) 10/21/2008 Hypertriglyceridemia 10/06/2007 DM (diabetes mellitus), type 2 with renal complications ([place] V24, [place] V28) 09/16/2007 Overview (09/01/2024): [facility]ighborhood [facility] Checking fingerstick blood sugars 02/03- Refuses injectable Diabetes Outreach by [place] Quality Team 04/05 - Esther Sears RD - read labels, readjust plate, increase activity, avoid carbs in isolation, manage stress with positive thinking 09/05- Flared gastroparesis symptoms with [place]; transition to Lantus Cervical spondylosis without myelopathy 01/29/20 07 Overview (09/01/2024): He's seen Dr. Whalen (ortho), Dr. Duran, Dr. Andrade (neursg), Dr. Noriega (neuro), Dr. Thomas (ortho), Dr. Bah neck pain with radiation to right arm 01/05- Dr. Bah - right C5 and C7 transforaminal epidural steroid injections 02/05 - Dr. Bah - recommend to try to reduce oxycodone intake now that he's feeling better Psoriatic arthropathy ([place] V24, [facility] V28) 01/28/2007 Overview (09/01/2024): Dr. Pinedo, Dr. Khai Valverde Methotrexate - LFT elevation Naproxen- stomach upset Enbrel - not effective for the patient Chronic pain syndrome 01/07/2007 Overview (09/01/2024): Dr. Au, Dr. Bah Essential hypertension, benign 01/07/2007 Esophageal reflux 03/05/2006 Encounters Date Type Department Care Team Description 05/02/2025 Telephone Gastroenterology - [place] [address] [facility] [address] [facility] [address] [place] [address] Isabel Pickard NP Med Refill 04/12/2025 8:45 AM EDT Office Visit Adult Medicine [facility] [address] [place] [address] Darryl Miller MD Diabetes mellitus type 2 with neurological manifestations ([facility] V24, [place] V28) (Primary Dx); Need for pneumococcal 20-valent conjugate vaccination; Chronic pain syndrome; Type 2 diabetes mellitus with cataract ([facility] V24, [facility] V28); Essential hypertension, benign; Type 2 diabetes mellitus with other diabetic kidney complication, with long-term current use of insulin ([place] V24, [facility] V28); Hypercholesteremia; Hypertriglyceridemia; Type 2 diabetes mellitus with obesity ([facility] V24, [facility] V28); Obesity (BMI 30-39.9) 03/14/2025 Telephone Adult Medicine [facility] [address] [place] [address] Malu Bran LPN Drug / Alcohol Assessment from Last 3 Months Immunizations Name Administration Dates Next Due H1N1 Inj Preservative Free 10/23/2009 Influenza Quadravalent, MDCK , 0.5ml, preservative free (Flucelvax) 6mo and older 07/07/2024,10/01/2023,08/30/2022,07/27,07/06/2019 Influenza Quadravalent, MDCK , 0.5ml, with preservative (Flucelvax) 6mo and older 08/07/2018,07/15/2017 Influenza trivalent, 0.5mL, preservative free (Fluarix; FluLaval; Fluzone) ages 6mo and older (Afluria) 3 years and older 07/22/2016,09/08/2015,10/02/2013,08/07,09/07/2010,10/23/2009,07/22/2008 ,09/18/2007 Influenza, Unspecified 07/27/2014 Moderna SARS-CoV-2 COVID-19, mRNA, LNP-S, preservative free 02/13/2021,01/16/2021 PPD Test 03/19/2011 Pneumococcal conjugate 20 va lent (Prevnar 20, PCV 20) 2mo and older 04/12/2025 Pneumococcal polysaccharide 23 valent (Pneumovax 23) 2yo and older 05/20/2014 Tdap Tetanus diptheria acell ular pertussis (Boostrix; Adacel) 7yo and older 10/01/2023,05/12/2013 Surgical History Surgery Date Site/Laterality Comments UPPER GASTROINTESTINAL ENDOSCOPY 06/10/2008 PROCEDURE: [place] UPPER GI ENDOSCOPY PERFORMED; COMMENT: normal at [facility]. Medical History Medical History Date Comments Cervicalgia 11/11/2005 DX:Cervicalgia Neuralgia, neuritis, and rad iculitis, unspecified 11/11/2005 DX:Neuralgia, neuritis, and radiculitis, unspecified Cervical spondylosis without myelopathy 01/28/2007 DX:Cervical spondylosis with out myelopathy; COMMENT: neck pain with radiation to right arm Epigastric pain 06/09/2008 DX:Epigastric pa in; COMMENT: Yahaira Nieto - Diabetic gastroparesis Type II or unspecified type diabetes mellitus with unspecified complication, not stated as uncontrolled DX:Type II or unspecified ty pe diabetes mellitus with unspecified complication, not stated as uncontrolled Esophageal reflux 03/05/2006 DX:Esophageal reflux Heart disease, unspecified DX:He art disease, unspecified Unspecified essential hypertension DX:Unspecified essential hypertension Glaucoma suspect 03/13/2011 DX:Glaucoma ericka pect Blood in stool 01/28/2007 DX:Blood in stoo l Diabetes mellitus type 2 wit h neurological manifestations ([facility] V24, [facility] V28) 02/02/2016 DX:Diabetes mellitus type 2 with neurological manifestations (HCC) Type 2 diabetes mellitus wit h cataract ([facility] V24, [facility] V28) 02/02/2016 DX:Type 2 diabetes mellitus with cataract (HCC) Knee pain 01/28/2012 DX:Knee pain Low back pain 09/03/2012 DX:Low back pain Gastroparesis DX:Gastroparesis Glaucoma DX:Glaucoma Family History Medical History Relation Name Comments Breast cancer Mother Autoimmune disease Neg Hx Blindness Neg Hx Cataracts Neg Hx Colon cancer Neg Hx Coronary artery disease Neg Hx Diabetes Neg Hx Glaucoma Neg Hx Heart attack Neg Hx Heart failure Neg Hx Hyperlipidemia Neg Hx Hypertension Neg Hx Macular degeneration Neg Hx Mental illness Neg Hx Prostate cancer Neg Hx Sleep apnea Neg Hx Strabismus Neg Hx Thyroid disease Neg Hx Relation Name Status Comments Father unknown Mother Alive Social History Tobacco Use Types Packs/Day Years Used Date Smoking Tobacco: Never Smokeless Tobacco: Never Tobacco Cessation:Counseling Given: Not Answered Alcohol Use Standard Drinks/Week Comments No 0 (1 standard drink = 0.6 oz pur e alcohol) Sex and Gender Information Value Date Recorded Sex Assigned at Not on file Legal Sex Male 7:28 AM EST Gender Identity Not on file Sexual Orientation Not on file Obstetrics History Last Filed Vital Signs Vital Sign Reading Time Taken Comments Blood Pressure 114/67 04/12/2025 8:34 AM EDT Pulse 87 04/12/2025 8:34 AM EDT Temperature 36.4 C (97.6 F) 04/12/2025 8:34 AM EDT Respiratory Rate - - Oxygen Saturation - - Inhaled Oxygen Concentration - - Weight 124 kg (274 lb 6.4 oz) 04/12/2025 8:34 AM EDT Height 188 cm (6' 2 ) 04/12/2025 8:34 AM EDT Body Mass Index 35.23 04/12/2025 8:34 AM EDT Plan of Treatment Upcoming Encounters Date Type Department Care Team (Late st Contact Info) Description 05/30/2025 1:15 PM EDT Office Visit Endocrinology - [address] [address] Génesis Tobin MD [address] [place] [address] 07/07/2025 9:45 AM EDT Office Visit Adult Medicine - [place] [address] [place] [address] Darryl Miller MD [address] [place] [address] 07/22/2025 8:20 AM EDT Consult Gastroenterology - [place] [address] [facility] [address] [place] [address] Isabel Pickard, KRYSTIAN [address] [facility] [address] [place] [address] 10/13/2025 9:45 AM EST Office Visit Adult Medicine - [place] [address] [place] [address] Darryl Miller MD [address] [place] [address] Health Maintenance Due Date Last Done Comments Diabetes: Annual Retina Eye Exam 1979 Hepatitis B Vaccines (1 of 3 - 19+ 3-dose series) 1988 Zoster Vaccines (1 of 2) 1988 HIV Screening 10/05/2022 Social Influencers of Health Screening 10/05/2022 COVID-19 Vaccine ( season) 2024 08/23/2021, 02/13/2021, 01/16/2021 Depression Screening 10/27/2024 Influenza Vaccine (#1) 2025 , 10/01/2023, 08/30/2022, Additional history exists Diabetes: Blood Sugar Control Test (HGBA1C) 10/11/2025 04/11/2025, 10/06/2024, 02/06/2024 Diabetes: Annual Urine Albumin-Creatinine Ratio (uACR) 04/11/2026 04/11/2025, 10/06/2024, 05/24/2022 Diabetes: Annual GFR (Glomerular Filtration Rate) 04/11/2026 04/11/2025, 02/11/2025, 10/06/2024, Additional history exists Hypertension/CHF/CAD Annual BMP Blood Test 04/11/2026 04/11/2025, 02/11/2025, 10/06/2024, Additional history exists Diabetes: Annual Foot Exam 04/12/202604/12, 01/05/2025, 10/06/2024, Additional history exists Cholesterol Screening (Lipid Panel) 04/11/2030 04/11/2025, 10/06/2024, 02/06/2024 Colorectal Cancer Screening: Colonoscopy 02/19/2032 02/18/2022 DTaP,Tdap,and Td Vaccines (3 - Td or Tdap) 10/01/2033 10/01/2023, 05/12/2013 Hepatitis C Screening Completed 02/11/2025, 011 Pneumococcal Vaccine: 50+ Years Completed 04/12/2025, 05/20/2014 HIB Vaccines Aged Out No longer eligi ble based on patient's age to complete this topic HPV Vaccines Aged Out No longer eligi ble based on patient's age to complete this topic Hepatitis A Vaccines Aged Out No long er eligible based on patient's age to complete this topic IPV Vaccines Aged Out No longer eligi ble based on patient's age to complete this topic MMR Vaccines Aged Out No longer eligi ble based on patient's age to complete this topic Meningococcal ACWY Vaccine Aged Out N o longer eligible based on patient's age to complete this topic Meningococcal B Vaccine Aged Out No l onger eligible based on patient's age to complete this topic RSV Immunization Patients Under 20 months Aged Out No longer eligible based on patient's age to complete this topic Varicella Vaccines Aged Out No longer eligible based on patient's age to complete this topic Procedures Procedure Name Priority Date/Time Associated Diagnosis Comments MICROALBUMIN CREATININE URINE RATIO Routine 04/11/2025 12:33 PM EDT Diabetes mellitus type 2 with neurological manifestations (CMS/HCC V24, CMS/HCC V28) LIPID PANEL WITH REFLEX TO DIRECT LDL Routine 04/11/2025 12:15 PM EDT Diabetes mellitus type 2 with neurological manifestations (CMS/HCC V24, CMS/HCC V28) HEMOGLOBIN A1C Routine 04/11/2025 12:15 PM EDT Diabetes mellitus type 2 with neurological manifestations (CMS/HCC V24, CMS/HCC V28) COMPREHENSIVE METABOLIC PANEL Routine 04/11/2025 12:15 PM EDT Diabetes mellitus type 2 with neurological manifestations (CMS/HCC V24, CMS/HCC V28) OPIATES CONFIRMATION, URINE Routine 03/16/2025 3:00 PM EDT Long-term use of high-risk medication DRUG ABUSE SCREEN EXPANDED WITH REFLEX CONFIRMATION, URINE Routine 03/16/2025 3:00 PM EDT Long-term use of high-risk medication INTERFERON GAMMA INTERPRETATION Routine 02/11/2025 2:38 PM EDT Screening examination for poliomyelitis Psoriatic arthropathy (CMS/HCC V24, CMS/HCC V28) Drug therapy Encounter for testing for latent tuberculosis INTERFERON GAMMA ANTIGEN 2 Routine 02/11/2025 2:38 PM EDT Screening examination for poliomyelitis Psoriatic arthropathy (CMS/HCC V24, CMS/HCC V28) Drug therapy Encounter for testing for latent tuberculosis INTERFERON GAMMA ANTIGEN 1 Routine 02/11/2025 2:38 PM EDT Screening examination for poliomyelitis Psoriatic arthropathy (CMS/HCC V24, CMS/HCC V28) Drug therapy Encounter for testing for latent tuberculosis INTERFERON GAMMA MITOGEN Routine 02/11/2025 2:38 PM EDT Screening examination for poliomyelitis Psoriatic arthropathy (CMS/HCC V24, CMS/HCC V28) Drug therapy Encounter for testing for latent tuberculosis INTERFERON GAMMA NIL Routine 02/11/2025 2:38 PM EDT Screening examination for poliomyelitis Psoriatic arthropathy (CMS/HCC V24, CMS/HCC V28) Drug therapy Encounter for testing for latent tuberculosis HEPATITIS PANEL, ACUTE WITH REFLEX TO CONFIRMATION Routine 02/11/2025 2:38 PM EDT Screening examination for poliomyelitis Psoriatic arthropathy (CMS/HCC V24, CMS/HCC V28) Drug therapy Encounter for testing for latent tuberculosis COMPREHENSIVE METABOLIC PANEL Routine 02/11/2025 2:38 PM EDT Screening examination for poliomyelitis Psoriatic arthropathy (CMS/HCC V24, CMS/HCC V28) Drug therapy Encounter for testing for latent tuberculosis INTERFERON GAMMA FOR TB, QUALITATIVE Routine 02/11/2025 2:38 PM EDT Screening examination for poliomyelitis Psoriatic arthropathy (CMS/HCC V24, CMS/HCC V28) Drug therapy Encounter for testing for latent tuberculosis COMPLETE BLOOD COUNT Routine 02/11/2025 2:38 PM EDT Screening examination for poliomyelitis Psoriatic arthropathy ([facility] V24, [facility] V28) Drug therapy Encounter for testing for latent tuberculosis C-REACTIVE PROTEIN Routine 02/11/2025 2: 38 PM EDT Screening examination for poliomyelitis Psoriatic arthropathy ([facility] V24, [facility] V28) Drug therapy Encounter for testing for latent tuberculosis SEDIMENTATION RATE Routine 02/11/2025 2: 38 PM EDT Screening examination for poliomyelitis Psoriatic arthropathy ([facility] V24, [facility] V28) Drug therapy Encounter for testing for latent tuberculosis DIABETES FOOT EXAM Routine 07/07/2024 COLONOSCOPY Routine 02/18/2022 from Last 3 Months or Most Recently Relevant to Health Maintenance Results * Microalbumin creatinine urine ratio (04/11/2025 12:33 PM EDT) Creatinine, Urine 25.0 mg/dL LAB CHEMISTRY METHOD 04/11/2025 5:53 PM EDT [facility] Microalb, Ur <5.0 0.0 - 29.0 mg/L LAB CHEMISTRY METHOD 04/11/2025 5:53 PM EDT [facility] Microalb/Creat Ratio <20 <30 mg/g creat LAB CHEMISTRY METHOD 04/11/2025 5:53 PM EDT [facility] Urine Urine specimen obtained by clean catch procedure / Unknown Non-blood Collection / Unknown 04/11/2025 12:33 PM EDT 04/11/2025 12:33 PM EDT us C Jose Miller MD LAB URINE ORDERABLES Final Res ult [facility] [address] [place] [address], * (ABNORMAL) Lipid panel with reflex to direct LDL (04/11/2025 12:15 PM EDT) Cholesterol 202(H) 0 - 200 mg/dL LAB CHEMISTRY METHOD 04/11/2025 4:29 PM EDT [facility] Triglycerides 424(H) 0 - 150 mg/dL LAB CHEMISTRY METHOD 04/11/2025 4:29 PM EDT [facility] HDL 33(L) >=40 mg/dL LAB CHEMISTRY METHOD 04/11/2025 4:29 PM EDT [facility] LDL Calculated 84 0 - 100 mg/dL LAB CHEMISTRY METHOD 04/11/2025 4:29 PM EDT [facility] Comment:Unable to calculate when triglycerides >400 mg/dL. VLDL Cholesterol Willy 84.8 mg/dL LAB CHEMISTRY METHOD 04/11/2025 4:29 PM EDT [facility] Comment:Unable to calculate when triglycerides >400 mg/dL. Non HDL Chol. (LDL+VLDL) 169(H) <145 mg/dL LAB CHEMISTRY METHOD 04/11/2025 4:29 PM EDT [facility] Comment:Unable to calculate when triglycerides >400 mg/dL. Chol/HDL Ratio 6.1(H) 0.0 - 4.4 LAB CHEMISTRY METHOD 04/11/2025 4:29 PM EDT [facility] Blood Venous blood specimen / Unknown Venipuncture / Unknown 04/11/2025 12:15 PM EDT 04/11/2025 12:15 PM EDT us C Jose Miller MD LAB BLOOD ORDERABLES Final Res ult [facility] [address] [place] [address], * (ABNORMAL) Hemoglobin A1c (04/11/2025 12:15 PM EDT) Hemoglobin A1C 9.0(H) <6.5 % LAB CHEMISTRY METHOD 04/11/2025 10:10 PM EDT [facility] Mean Bld Glu Estim. 212 mg/dL LAB CHEMISTRY METHOD 04/11/2025 10:10 PM [facility] Blood Venous blood specimen / Unknown Venipuncture / Unknown 04/11/2025 12:15 PM EDT 04/11/2025 12:15 PM EDT C Jose Miller MD LAB BLOOD ORDERABLES Final Res ult [facility] [address] [place] [address], [place] [phone] * (ABNORMAL) Comprehensive metabolic panel (04/11/2025 12:15 PM EDT) Only the most recent of2 resultswithin the time period is included. [facility] Sodium 132(L) 133 - 145 mmol/L LAB CHEMISTRY METHOD 04/11/2025 4:23 PM [facility] Potassium 4.6 3.5 - 5.5 mmol/L LAB CHEMISTRY METHOD 04/11/2025 4:23 PM [facility] Chloride 95(L) 96 - 110 mmol/L LAB CHEMISTRY METHOD 04/11/2025 4:23 PM [facility] CO2 29 21 - 32 mmol/L LAB CHEMISTRY METHOD 04/11/2025 4:23 PM [facility] Anion Gap 8 3 - 11 LAB CHEMISTRY METHOD 04/11/2025 4:23 PM [facility] Glucose 201(H) 70 - 100 mg/dL LAB CHEMISTRY METHOD 04/11/2025 4:23 PM [facility] BUN 25 5 - 25 mg/dL LAB CHEMISTRY METHOD 04/11/2025 4:23 PM [facility] Creatinine 1.66(H) 0.70 - 1.30 mg/dL LAB CHEMISTRY METHOD 04/11/2025 4:23 PM [facility] eGFR 48(L) >=60 mL/min/1. 73m2 LAB CHEMISTRY METHOD 04/11/2025 4:23 PM [facility] Comment:Calculation based on the Chronic Kidney Disease Epidemiology Collaboration (CKD-EPI) equation refit without adjustment for race. BUN/Creatinine Ratio 15.1 LAB CHEMISTRY METHOD 04/11/2025 4:23 PM [facility] Calcium 10.4 8.5 - 10.5 mg/dL LAB CHEMISTRY METHOD 04/11/2025 4:23 PM [facility] AST (SGOT) 22 10 - 42 unit/L LAB CHEMISTRY METHOD 04/11/2025 4:23 PM [facility] ALT (SGPT) 49 10 - 60 unit/L LAB CHEMISTRY METHOD 04/11/2025 4:23 PM [facility] Alkaline Phosphatase 41(L) 42 - 121 unit/L LAB CHEMISTRY METHOD 04/11/2025 4:23 PM [facility] Total Protein 7.5 6.0 - 8.0 g/dL LAB CHEMISTRY METHOD 04/11/2025 4:23 PM [facility] Albumin 4.1 3.2 - 5.0 g/dL LAB CHEMISTRY METHOD 04/11/2025 4:23 PM [facility] Total Bilirubin 0.5 0.0 - 1.4 mg/dL LAB CHEMISTRY METHOD 04/11/2025 4:23 PM [facility] Blood Venous blood specimen / Unknown Venipuncture / Unknown 04/11/2025 12:15 PM EDT 04/11/2025 12:15 PM EDT us C Jose Miller MD LAB BLOOD ORDERABLES Final Res ult [facility] [address] [place] [address], [place] [phone] * (ABNORMAL) Drug abuse screen expanded with reflex confirmation, urine (03/16/2025 3:00 PM EDT) Amphetamine Screen, Ur Negative Negative LAB CHEMISTRY METHOD 5 8:30 PM EDT [facility] Comment:Certain OTC medicati ons containing ephedrine, phenylephrine, pseudoephedrine and phenylpropanolamine can cause false positive results. Barbiturate Screen, Ur Negative Negative LAB CHEMISTRY METHOD 5 8:30 PM EDT [facility] Benzodiazepine Screen, Ur Negative Negative LAB CHEMISTRY METHOD 5 8:30 PM [facility] Cocaine Screen, Ur Negative Negative LAB CHEMISTRY METHOD 5 8:30 PM [facility] Opiate Screen, Ur Positive(A ) Negative LAB CHEMISTRY METHOD 5 8:30 PM T [facility] Cannabinoid (THC) Screen, Ur Negative Negative LAB CHEMISTRY METHOD 5 8:30 PM T [facility] Comment:Specimens from patie nts taking pantoprazole sodium (Protonix) have been shown to produce false positive results. Fentanyl, Ur Negative Negative LAB CHEMISTRY METHOD 5 8:30 PM EDT [facility] Oxycodone Screen, Ur Positive(A ) Negative LAB CHEMISTRY METHOD 5 8:30 PM [facility] Urine Urine specimen obtained by clean catch procedure / Unknown Non-blood Collection / Unknown 03/16/2025 3:00 PM EDT 03/16/2025 3:00 PM EDT Narrative [facility] - 03/16/2025 8:30 PM EDT Assay cutoffs: Amphetamines 1000 ng/mL Barbiturates 200 ng/mL Benzodiazepines 200 ng/mL Cocaine 300 ng/mL Fentanyl 1 ng/mL Opiates 300 ng/mL Oxycodone 100 ng/mL THC 50 ng/mL Semi-quantitative assay for screening purposes only. Unconfirmed screening result should not be used for non-medical purposes. *POSITIVE RESULTS ARE AUTOMATICALLY SENT FOR ALTERNATE METHOD CONFIRMATION* Alba Daniels SEEING EYE DOG TEACHER LAB URINE ORDERABLES Final Res ult [facility] ([facility] [address] [place] [address], * Opiates confirmation, urine (03/16/2025 3:00 PM EDT) Morphine Confirm, Urine >8000 ng/mL 03/24/2025 12:53 AM EDT [facility] Codeine Confirm, Urine Negative ng/mL 03/24/2025 12:53 AM EDT [facility] Hydrocodone Confirm, Urine Negative ng/mL 03/24/2025 12:53 AM EDT [facility] Hydromorphone Confirm, Urine 123 ng/mL 03/24/2025 12:53 AM EDT [facility] Oxycodone Confirm, Urine 1284 ng/mL 03/24/2025 12:53 AM EDT [facility] Oxymorphone Confirm, Urine 1437 ng/mL 03/24/2025 12:53 AM EDT [facility] Creatinine 46 20 - 250 mg/dL 03/24/2025 12:53 AM EDT [facility] Adulterants Negative 03/24/2025 12:53 AM EDT [facility] Comment: Confirmation (LC/MS/MS) Decision Limits Morphine 25 ng/mL Codeine 25 ng/mL Hydrocodone 25 ng/mL Hydromorphone 25 ng/mL Oxycodone 25 ng/mL Oxymorphone 25 ng/mL Adulterant Decision Limit: General Oxidants 200 ug/mL The adulterant assay tests for General Oxidants, including Chromates and Nitrites. Adulterants are substances either ingested or added directly to a urine specimen to prevent the detection of drug use. If applicable, any drug confirmation testing reported here was developed and the performance characteristics determined by [facility]. This confirmation testing has not been cleared or approved by the FDA. The laboratory is regulated under CLIA as qualified to perform high-complexity testing. This test is used for patient testing purposes. It should not be regarded as investigational or for research. Test performed at [facility], [address] , [place] [address] Lluvia Zuniga MD, PhD - Drum Tender Urine Urine specimen obtained by clean catch procedure / Unknown Non-blood Collection / Unknown 03/16/2025 3:00 PM EDT 03/16/2025 8:30 PM EDT us Alba Daniels SEEING EYE DOG TEACHER LAB URINE ORDERABLES Final Res ult [facility] [address] [place] [address] * Interferon gamma interpretation (02/11/2025 2:38 PM EDT) [facility] Quantiferon Plus Interpretation Negative Negative LAB CHEMISTRY METHOD 02/13/2025 6:12 AM EDT [facility] Blood Venous blood specimen / Unknown Venipuncture / Unknown 02/11/2025 2:38 PM EDT 02/11/2025 2:46 PM EDT Pcp Unknown Physician LAB BLOOD ORDERABLES Final Result Performing Organization Address City/[facility]/ZIP Co de Phone Number [facility] [address] [place] [address], [place] [phone] * Interferon gamma antigen 2 (02/11/2025 2:38 PM EDT) Blood Venous blood specimen / Unknown Venipuncture / Unknown 02/11/2025 2:38 PM EDT 02/11/2025 2:46 PM EDT us Pcp Unknown Physician LAB BLOOD ORDERABLES Final Result Performing Organization Address City/[facility]/ZIP Co de Phone Number [facility] [address] [place] [address], [place] [phone] * Inteferon gamma antigen 1 (02/11/2025 2:38 PM EDT) Blood Venous blood specimen / Unknown Venipuncture / Unknown 02/11/2025 2:38 PM EDT 02/11/2025 2:46 PM EDT us Pcp Unknown Physician LAB BLOOD ORDERABLES Final Result Performing Organization Address [facility]/ZIP Co de Phone Number [facility] [address] [place] [address], * Interferon gamma mitogen (02/11/2025 2:38 PM EDT) Blood Venous blood specimen / Unknown Venipuncture / Unknown 02/11/2025 2:38 PM EDT 02/11/2025 2:46 PM EDT us Pcp Unknown Physician LAB BLOOD ORDERABLES Final Result Performing Organization Address [facility] de Phone Number [facility] [address] [place] [address], [place] [phone] * Interferon gamma NIL (02/11/2025 2:38 PM EDT) Blood Venous blood specimen / Unknown Venipuncture / Unknown 02/11/2025 2:38 PM EDT 02/11/2025 2:46 PM EDT us Pcp Unknown Physician LAB BLOOD ORDERABLES Final Result Performing Organization Address [facility] de Phone Number [facility] [address] [place] [address], [place] [phone] * Hepatitis panel, acute with reflex to confirmation (02/11/2025 2:38 PM EDT) Hepatitis B Surface Ag Negative Negative LAB CHEMISTRY METHOD 02/11/2025 8:02 PM EDT [facility] Hepatitis A Antibody IgM Negative Negative LAB CHEMISTRY METHOD 02/11/2025 8:02 PM EDT [facility] Hep B Core IgM Negative Negative LAB CHEMISTRY METHOD 02/11/2025 8:02 PM EDT [facility] Hepatitis C Antibody Negative Negative LAB CHEMISTRY METHOD 02/11/2025 8:02 PM EDT [facility] Blood Venous blood specimen / Unknown Venipuncture / Unknown 02/11/2025 2:38 PM EDT 02/11/2025 2:46 PM EDT Amanda Vega MD LAB BLOOD ORDERABLES Final Resu lt Performing Organization Address City/[facility]/ZIP Co de Phone Number [facility] [address] [place] [address], [place] [phone] * Sedimentation rate (02/11/2025 2:38 PM EDT) Sed Rate 9 0 - 20 mm/hr LAB HEMETOLOGY METHOD 02/11/2025 6:41 PM EDT [facility] Blood Venous blood specimen / Unknown Venipuncture / Unknown 02/11/2025 2:38 PM EDT 02/11/2025 2:46 PM EDT Amanda Vega MD LAB BLOOD ORDERABLES Final Resu lt Performing Organization Address City/[facility]/ZIP Co de Phone Number [facility] [address] [place] [address], [place] [phone] * (ABNORMAL) Complete blood count (02/11/2025 2:38 PM EDT) WBC 7.6 4.8 - 10.8 K/mcL LAB HEMETOLOGY METHOD 02/11/2025 6:09 PM EDT [facility] RBC 5.10 4.50 - 5.50 M/mcL LAB HEMETOLOGY METHOD 02/11/2025 6:09 PM EDT [facility] Hemoglobin 14.3 13.5 - 17.5 g/dL LAB HEMETOLOGY METHOD 02/11/2025 6:09 PM EDT [facility] Hematocrit 44.4 42.0 - 54.0 % LAB HEMETOLOGY METHOD 02/11/2025 6:09 PM EDT [facility] MCV 86.5 79.0 - 98.0 FL LAB HEMETOLOGY METHOD 02/11/2025 6:09 PM EDT [facility] MCH 27.9 27.0 - 32.0 pcg LAB HEMETOLOGY METHOD 02/11/2025 6:09 PM EDT [facility] MCHC 32.2 32.0 - 37.0 g/dL LAB HEMETOLOGY METHOD 02/11/2025 6:09 PM EDT [facility] RDW 13.2 11.0 - 15.0 % LAB HEMETOLOGY METHOD 02/11/2025 6:09 PM EDT [facility] Platelets 303 130 - 400 K/mcL LAB HEMETOLOGY METHOD 02/11/2025 6:09 PM EDT [facility] MPV 11.3(H) 7.0 - 11.0 FL LAB HEMETOLOGY METHOD 02/11/2025 6:09 PM EDT [facility] NRBC 0.0 <1.0 % LAB HEMETOLOGY METHOD 02/11/2025 6:09 PM EDT [facility] NRBC Absolute 0.00 <0.10 K/mcL LAB HEMETOLOGY METHOD 02/11/2025 6:09 PM EDT [facility] Blood Venous blood specimen / Unknown Venipuncture / Unknown 02/11/2025 2:38 PM EDT 02/11/2025 2:46 PM EDT us Amanda Vega MD LAB BLOOD ORDERABLES Final Resu lt [facility] [address] [place] [address], * C-reactive protein (02/11/2025 2:38 PM EDT) [facility] C-Reactive Protein <0.29 <=0.50 mg/dL LAB CHEMISTRY METHOD 02/11/2025 6:32 PM EDT [facility] Blood Venous blood specimen / Unknown Venipuncture / Unknown 02/11/2025 2:38 PM EDT 02/11/2025 2:46 PM EDT Amanda Vega MD LAB BLOOD ORDERABLES Final Resu lt [facility] ([facility] [address] [place] [address], [place] [phone] * Diabetes Foot Exam (07/07/2024) [facility] Diabetes: Annual Foot Exam Abstracted Historical Provider HEALTH MAINTENANCE Final Result * Colonoscopy (02/18/2022) [facility] Colonoscopy Abstracted, no interpretation Anatomical Region Laterality Modality Other Historical Provider HEALTH MAINTENANCE Final Result from Last 3 Months or Most Recently Relevant to Health Maintenance Insurance [facility] [place]AYO [id number] Care Teams Wood Stock Blank Handler Relationship Specialty Start Date End Date Darryl Miller MD [address] [place] [id number] PCP - General Internal Medicine 04/10/21
--- OUTSIDE RECORDS SUMMARY | 2025-05-12 13:42 | XMS_ITS | Patient Health Record ---
Author Organization [facility] Address [address] [place] [id number] Care Team Providers Care Herd Tester Name Role Phone Vance Miller MD Primary Care Provider Unavail able Allergies No Known Allergies Reason For Referral No Information Medications Medication SIG (Take, Route, Frequency, Duration) Notes Start Date End Date Status lipitor 80 mg tablet Active Lisinopril 20 MG 1 tablet Orally Active oxyCODONE HCl 30 MG 1 tablet Orally Active Morphine Sulfate 15 MG 1 tablet as neede d Orally morphine 30 mg tablet Active Metoprolol-hydroCHLORO thiazide 50-25 MG 1 tablet with a meal Orally Active Fenofibrate 54 MG 1 tablet Orally Active Insulin Lispro 30 units Activ e Empagliflozin 25 MG 1 tablet Orally Active Promethazine HCl 25 MG 1 ml as needed Orally Active Insulin Glargine 100 UNIT/ML as directed Subcutaneous Active Metoclopramide HCl 10 MG 1 ml before meals Orally Active Latanoprost 0.005 % as directed Ophthalmic Active metFORMIN HCl 750 mg 24 hr tablet Active Social History Tobacco Use: Social History Observation Description Date Details (start date - stop date) Never Smoker NA - NA Tobacco Use/Smoking Question Answer Notes Are you a nonsmoker Problems Problem Type SNOMED Code ICD Code Onset Dates Problem Status W/U Status Risk Notes Problem Cervical spondylosis without myelopathy (277274930) Spondylosis without myelopathy or radiculopathy, cervical region (M47.812) Active confirmed Problem Lumbosacral spondylosis without myelopathy (23390820) Spondylosis without myelopathy or radiculopathy, lumbar region (M47.816) Active confirmed Plan Of Treatment No Information Insurance Providers Payer Name Payer Address Payer Phone Subscriber Number Group Number Insured Name Patient Relationship to Insured Coverage Start Date Coverage End Date UMR by [facility] [address] [address] [place], [place] [id number] BASIL BLANCAS Self - patient is the insured Medical (General) History Medical History History ICD Code diabetes obesity CKD stage 3 hyperlipidmia hypertriglyceridemia 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
== END 2025-05-12 14:24 | disposition home or self-care (01) ==
LOC: HO.RHE 13:15
PROVIDERS: PCP Pediatrics; Visit Provider Student in an Organized Health Care Education/Training Program
DX: L40.50 Arthropathic psoriasis, unspecified (principal); M15.9 Polyosteoarthritis, unspecified; Z79.899 Other long term (current) drug therapy
CPT/HCPCS: 99214; G2211